=== PATIENT | female | born 1935 | race Caucasian/White ===

== ENCOUNTER 2016-07-31 13:06 | Emergency (ER) | payer MEDICARE, OTHER ==
[2016-07-31] MEDS ORDERED: Sodium Chloride 0.9% 1,000 ML IV ONE (14:08)
[2016-07-31] MEDS ORDERED: Insulin Aspart 100 Units/ML 3 ML Pen SUBCUT ONE ×3 (14:16→16:30)
[2016-07-31] MEDS ORDERED: Potassium Chloride 20 MEQ Packet PO ONE (17:55)
[2016-07-31 18:33] VITALS: BP 131/68
--- NOTE | 2016-08-01 01:43 | ER ---
DATE SEEN: 07/31/2016 The patient's 0530 glucose was 338. It is a nice drop from previous glucoses of 774, 476, down to 338, a drop of 38 mg%, well below the excess considered causing cerebral edema, greater than 190 per hour. Her glucose has come down nicely. She will be seeing the sales special agent tomorrow. See previous dictation. DIAGNOSIS: Nonketotic osmotic hyperglycemia. /[id number] TAMIKA/MODL
--- NOTE | 2016-08-01 07:46 | CT ---
INDICATION: Weakness, hyperglycemia, overall general weakness since birthday on 07/28/2017. CT HEAD WITHOUT CONTRAST: Serial contiguous 2.5 and 5 mm sections were obtained 07/31/2016 and compared with 09/12/2014, again revealing heavy calcifications in the vertebral and internal carotid arteries, extending into the MCA on the left. No shift of midline structures was suggested of any significance. Enlarged ventricles are noted with asymmetrically enlarged left lateral ventricle, possibly on the basis of relative atrophy of the left cerebral cortex. There is also prominence of the cortical sulci. Very slight increased prominence of the size of the ventricles is suggested, compatible with progressive central atrophy. A definite increase is not seen in the cortical sulci. There are some minimal areas of decreased density in the white matter, which do not appear to be significantly progressive. Two lacunar infarcts are again suggested in the posterior right basal ganglia. Again, paranasal sinuses appear to be intact. Cranium was unremarkable. Fluid-filled mastoid air cells are noted anterior rostral inferiorly on the left, which could represent mastoiditis but should be correlated clinically. Findings appear slightly more prominent than on the previous examination. IMPRESSION: 1. No definite acute intracranial abnormality no bleeding site or hematoma. 2. Slightly progressive central atrophy with cortical atrophy also noted. 3. Heavy arterial calcifications noted, compatible with cerebrovascular disease. 4. Possible left-sided mastoiditis. 5. Possible lacunar infarcts posteriorly at the right basal ganglia. 6. Mild degree of microvascular disease is suggested, although other cause of leukoencephalopathy cannot be excluded. Total exam DLP = 949.36 mGy-cm. Report was called to Dr. Herrera at 1437 hours on 07/31/2016. [facility]
--- NOTE | 2016-08-01 08:20 | CR ---
INDICATION: Weakness. CHEST: AP and lateral views of the chest 07/31/2016, compared with 11/20/2010 and 09/30/2014, revealed suggestion of some infiltrate, some of it appearing nodular, at the right lung base. CT examination without and possibly with IV contrast may be helpful in that regard. There does appear to be some increased density anteriorly in the middle lobe on the lateral view. Otherwise, no definite active infiltrate or effusion was seen. Findings suggesting COPD are noted. The aorta was calcified in the arch and descending portion. The heart did not appear enlarged and appeared normal in shape. Bony structures appeared to be grossly intact. IMPRESSION: 1. Infiltrate suggested at the right lower middle to lung base area, some of it nodular. CT may be warranted to exclude possibility of other than benign disease, initially without IV contrast and then with contrast, if needed. 2. Probable COPD. 3. ASD aorta. Report was given by phone to Dr. Herrera soon after the examination was completed on 07/31/2016. [facility]
--- NOTE | 2016-08-01 09:35 | CT ---
INDICATION: 30-40 years ago lung infection, almost ; right middle lobe infiltrate, doubt PE. CT CHEST WITHOUT CONTRAST: Spiral 2.5 mm axial sections were obtained through the chest without contrast with sagittal and coronal reconstructions 07/31/2016. Total exam DLP = 288.87 mGy-cm. Chest x-ray from 07/31/2016 was available for comparison. No comparison CT was available. In the upper abdomen included on the study, multiple large gallstones are noted. Also, in the upper abdomen, extensive abdominal aortic artery calcification, calcification in the splenic artery and superior mesenteric, as well as left renal artery calcifications noted. Some linear density at the left lung base is compatible with some minimal fibrosis. Left lung and pleural space showed no evidence of definite active infiltrate or effusion. Calcified granuloma is noted in the left lower lobe superior segment laterally. In the right upper lobe, there is some minimal infiltration just anterior to the major fissure on axial image #49. It is associated with a small nodular density, which is along its anterior aspect. Likely these all represent fibrotic changes but should be re-examined in 3 months to confirm stability. An additional similar area of patchy infiltrate is seen in the right lower lobe on axial image #59 on the right laterally and should also be re-examined. There is some infiltrate in the middle lobe, suggesting some minimal focal consolidating pneumonia, rather than a mass lesion. No gross mediastinal masses were seen; however, there is some mediastinal lymphadenopathy present, which would be compatible with inflammatory disease but should be correlated clinically in that regard also. Extensive coronary artery calcifications are noted. IMPRESSION: 1. Probable pneumonia, possibly some atelectasis in the middle lobe. 2. Areas of patchy infiltration, minimal in the right upper lobe and right lower lobe. Re-examination by chest CT without contrast recommended in 3 months to confirm stability, as early neoplasia cannot be entirely excluded. 3. Cholelithiasis. 4. ASHD/ASD. Report was called to Dr. Herrera at 1615 hours on 07/31/2016. [facility]
--- NOTE | 2016-08-03 14:03 | ER ---
DATE SEEN: 07/31/2016 TIME SEEN: The patient was seen at 1320 hours. HISTORY OF PRESENT ILLNESS: This 81-year-old comes in with a history of polydipsia, not following her diabetic diet, weakness. She fell a week ago, polyuria, and having taken 30 units of Levemir h.s. last night and experienced hyperglycemia this morning. She took her atenolol and Tylenol No. 3. Last meal today, she had green vegetables and sandwich; however, last night, she had a large piece of chocolate cake. PAST MEDICAL HISTORY: Known coronary artery disease, diabetes, hypertension, rheumatic valve insufficiency, neuralgia, and chronic kidney disease. CURRENT MEDICATIONS: Per list from the clinic is faxed to us today. 1. Recently had been prescribed to have insulin 55 units, but she still has her own Levemir at home. She wants to finish that before she buys it (she wants to be economical). Consequently, she is taking 30 units h.s. and is not taking it during the daytime. She has an appointment to follow up with her diabetic counselor. 2. Tenoretic 100/25. 3. Lipitor 10 mg daily. 4. Imdur 30 mg daily. 5. Tramadol 50 mg daily. 6. Vitamin D with calcium. 7. [place]-3 fatty acids. IMMUNIZATIONS: Up-to-date, including influenza 2016. The patient is alert and appropriate. Noted to have mild dementia. She is attended by her daughter. Daughter has extensive rheumatoid arthritis and is somewhat weak herself. They live together. Daughter sees that Juanis gets her medications. REVIEW OF SYSTEMS: Negative. She denies chest pain, shortness of breath, cough, abdominal pain, diarrhea, constipation, blood in the stool, or black or tarry stool. She has weakness as noted above and muscle weakness and mild arthritis. PHYSICAL EXAMINATION: VITAL SIGNS: Blood pressure 129/63, heart rate 60, respirations 20, oxygen saturation 95% on room air, and 36.8 degrees centigrade temperature. Weight 67.585 kg, height 1.6 m, and she is 26.4 kg/sq m BMI. HEENT: The patient is slightly hard of hearing. PERRLA intact. Pharynx without abnormality. NECK: There is a murmur that is heard in the neck that transfers to the chest. HEART: Systolic murmur on the left upper sternal border. There is a murmur that is transmitted to the left axilla. Does not go to the inferior scapular angle on the left side. LUNGS: No rales in the lungs. ABDOMEN: Nontender. No guarding or abdominal discomfort. EXTREMITIES: Without edema. Deep tendon reflexes hypoactive in upper and lower extremities. WORKING DIAGNOSES: Congestive heart failure, pneumonia, shortness of breath, myocardial infarction causing weakness, hyperglycemia with polydipsia and polyuria. The patient's current glucose is 744. LABORATORY DATA: Remainder of the lab tests: 11,700 D-dimer (not felt this is totally related to or caused by PE), the probability of PE is low. Because of her elevated creatinine of 1.9 and BUN of 32, a PE scan cannot be done by CAT scan; however, it is not felt necessary. X-ray reveals an infiltrate to the right of the lung. This is different from the previous chest x-ray done almost a year ago, which has no infiltrate at all. This suggests perhaps she might have some cancer growth and/or foci of pneumonia. The probably of the latter is low since she has a normal white count of 8600, PMNs 62, lymphs 28, monos 7, platelets 267,000, and hemoglobin 14.0. Complete Metabolic Panel: Abnormal with hyponatremia with sodium of 128, potassium 3.5, chloride 92, CO2 of 22, BUN 32, creatinine 1.6, and 25 of GFR. Stage 4 chronic kidney disease. Glucose 476 (taken after the patient had 10 units of NovoLog). Troponin 0.101. BNP is 115. ASSESSMENT: 1. Nonketotic hyperosmotic hyperglycemia. 2. Hypokalemia on the basis of a low potassium, with her receiving a dose of 40 mEq potassium chloride. She had doses of 10 units of fast-acting insulin that was reviewed by another because this dropped her glucose at least 200 plus units. She was then given a dose of 6 units. She is now eating. Brain natriuretic peptide is 115. Troponin is 0.01. 3. Diabetes without ketoacidosis. 4. Hyponatremia and hypochloremia, possibly secondary to inappropriate ADH and/or most likely dilution from her elevated sugar. Most likely, the hyponatremia is functioning as pseudohyponatremia secondary to hyperglycemia. 5. Troponin is negative, and there is no evidence for myocardial ischemia. EKG was in sinus rhythm, borderline interventricular conduction delay with a widened QRS of 47 milliseconds. 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 PLAN: Because the patient is having difficulty with her diabetes, we have made arrangements for her to see a consumer affairs specialist on 08/01/2016, at 1030 hours. She will follow up with Dr. Davis this , 08/03/2016 at 1130 hours. Also, she has this unusual abnormality in her lungs, which the CT scan read as possible CA or abnormal mass. CAT scan is expected to be repeated in 3 months. /[id number] TAMIKA/GINA
== END 2016-07-31 18:20 | disposition home or self-care (01) ==
LOC: FB.ED 13:06
DX: E11.65 Type 2 diabetes mellitus with hyperglycemia (principal); Z79.4 Long term (current) use of insulin; M25.551 Pain in right hip; J06.9 Acute upper respiratory infection, unspecified; B97.89 Other viral agents as the cause of diseases classified elsewhere; E78.5 Hyperlipidemia, unspecified; M16.11 Unilateral primary osteoarthritis, right hip; I25.10 Atherosclerotic heart disease of native coronary artery without angina pectoris; I10 Essential (primary) hypertension; B35.1 Tinea unguium; N18.9 Chronic kidney disease, unspecified
CPT/HCPCS: 36415; 70450; 71020; 71250; 80048; 80053; 82947; 83880; 84484; 85025; 85379; 93005; 96360; 96372; 99284; 99285; A9270; J7040

== ENCOUNTER 2017-05-14 21:43 | Observation (INO) | payer MEDICARE, OTHER ==
--- NOTE | 2017-05-14 22:06 | EDM.PDOC ---
ED HPI GENERAL MEDICAL PROBLEM - General Stated Complaint: N/V Time Seen by Provider: 05/14/17 21:56 Source of Information: Reports: Patient, EMS History Limitations: Reports: No Limitations - History of Present Illness INITIAL COMMENTS - FREE TEXT/NARRATIVE: 81 y.o.w.f with h/o IDDM came to to the ed after she was passing out several times while on the toilet, as per daughter, who was witnessing the event. Pt had no specific complains on arrival. No N/V/D no C/P. Pt appeared tired however. No acute medical issues at this time. BP 151/58 Pulse 55 Temp 36.8 Pulse ox 95% on RA Accu check on arrival 177 Onset: Today Onset Date: 05/14/17 Onset Time: 20:00 Duration: Hour(s):, Intermittent Location: Reports: Generalized Quality: Reports: Other (passing out for seconds) Improves with: Reports: Rest Worsens with: Reports: Movement Context: Reports: Other (passing out while in the bathroom) Neck Pain Score (Numeric/FACES): 5 - Related Data Allergies Allergy/AdvReac Type Severity Reaction Status Date / Time Penicillins Allergy Unknown unknown Verified 05/14/17 22:03 Home Meds: Home Meds atorvaSTATin [Lipitor] 10 mg PO BEDTIME 05/14/17 [History] metFORMIN HCl [Metformin HCl ER] 1,000 mg PO DAILY 05/15/17 [History] Aspirin [Halfprin] 81 mg PO DAILY #30 tab.ec 05/16/17 [Rx] Hydrochlorothiazide 25 mg PO DAILY #30 tablet 05/16/17 [Rx] Insulin Detemir [Levemir] 45 unit SUBCUT BEDTIME #3 pen 05/16/17 [Rx] Potassium Chloride [Klor-Con M20] 20 meq PO DAILY #30 tab.er 05/16/17 [Rx] Past Medical History Cardiovascular History: Reports: CAD, Heart Failure, Hypertension, Other (See Below) Other Cardiovascular History: mitral valve insuff Genitourinary History: Reports: Renal Disease Musculoskeletal History: Reports: Back Pain, Chronic, Other (See Below) Other Musculoskeletal History: neuralgia, Endocrine/Metabolic History: Reports: Diabetes, Type II Social & Family History - Tobacco Use Smoking Status *Q: Never Smoker Second Hand Smoke Exposure: No - Alcohol Use Days Per Week of Alcohol Use: 0 - Recreational Drug Use Recreational Drug Use: No ED ROS GENERAL - Review of Systems Review Of Systems: See Below Constitutional: Reports: Weakness HEENT: Reports: No Symptoms Respiratory: Reports: No Symptoms Cardiovascular: Reports: No Symptoms Endocrine: Reports: No Symptoms GI/Abdominal: Reports: No Symptoms : Reports: No Symptoms Musculoskeletal: Reports: No Symptoms Skin: Reports: No Symptoms Neurological: Reports: No Symptoms Psychiatric: Reports: No Symptoms Hematologic/Lymphatic: Reports: No Symptoms Immunologic: Reports: No Symptoms - Physical Exam Exam: See Below Exam Limited By: Physical Impairment General Appearance: Alert, WD/WN, Mild Distress, Thin Eye Exam: Bilateral Eye: Normal Inspection Ears: Normal External Exam Nose: Normal Inspection Throat/Mouth: Normal Inspection, No Airway Compromise Head Exam: Atraumatic, Normocephalic Neck: Normal Inspection, Supple, Non-Tender, Full Range of Motion Respiratory/Chest: No Respiratory Distress, Lungs Clear, Normal Breath Sounds Cardiovascular: Normal Peripheral Pulses, Regular Rate, Rhythm, Bradycardia GI/Abdominal: Normal Bowel Sounds, Soft, Non-Tender, No Organomegaly, No Distention, No Abnormal Bruit (Female) Exam: Deferred Rectal (Female) Exam: Deferred Neuro Exam (Abbreviated): Alert, Oriented, CN II-XII Intact, Normal Cognition, No Motor/Sensory Deficits Back Exam: Normal Inspection Extremities: Normal Inspection, Normal Range of Motion, Non-Tender, No Pedal Edema, Normal Capillary Refill Psychiatric: Normal Affect, Normal Mood Skin Exam: Warm, Dry, Intact, Normal Color, No Rash EKG INTERPRETATION EKG Date: 05/14/17 Time: 22:00 Rhythm: NSR Rate (Beats/Min): 54 [place]: Normal P-Wave: Present QRS: Normal ST-T: Normal QT: Normal Comparison: NA - No Prior EKG Course - Vital Signs Text/Narrative:: 81 y.o.w.f with h/o IDDM came to to the ed after she was passing out several times while on the toilet, as per daughter, who was witnessing the event. Pt had no specific complains on arrival. No N/V/D no C/P. Pt appeared tired however. No acute medical issues at this time. BP 151/58 Pulse 55 Temp 36.8 Pulse ox 95% on RA, Accu check was 177 at he scene. PE: Weak, tired 81 y.o.w.f, no tongue bite Labs: UA is pending: CBC nl K 3.4 Cr. 1.6 Impression: Vasovagal syncope, CRI, H/O IDDM, Hypokalemia, DNR/DNI Tx: LR Reexam: improved Plan: Admit to [facility] Last Recorded V/S: Last Vital Signs Temp 36.7 C 05/16/17 12:00 Pulse 65 05/16/17 12:00 Resp 16 05/16/17 12:00 BP 124/57 L 05/16/17 12:00 Pulse Ox 96 05/16/17 12:00 - Orders/Labs/Meds Labs: Laboratory Tests 05/14/17 05/14/17 05/14/17 Range/Units 22:00 22:00 22:00 WBC 11.3 (4.5-12.0) X10-3/uL RBC 5.22 H (3.23-5.20) x10(6)uL Hgb 14.6 (11.5-15.5) g/dL Hct 43.3 (30.0-51.3) % MCV 83.1 (80-96) fL MCH 27.9 (27.7-33.6) pg MCHC 33.6 (32.2-35.4) g/dL RDW 13.3 (11.5-15.5) % Plt Count 332 (125-369) X10(3)uL MPV 7.9 (7.4-10.4) fL Neut % (Auto) 67.5 (46-82) % Lymph % (Auto) 22.2 (13-37) % [place] % (Auto) 8.0 (4-12) % Eos % (Auto) 2 (1.0-5.0) % Baso % (Auto) 1 (0-2) % Neut # (Auto) 7.6 (1.6-8.3) # Lymph # (Auto) 2.5 (0.6-5.0) # [place] # (Auto) 0.9 (0.0-1.3) # Eos # (Auto) 0.2 (0.0-0.8) # Baso # (Auto) 0.1 (0.0-0.2) # PT 10.3 (8.7-11.1) INR 1.02 (0.89-1.13) Sodium 140 (135-145) mmol/L Potassium 3.4 L (3.5-5.3) mmol/L Chloride 98 L (100-110) mmol/L Carbon Dioxide 31 (21-32) mmol/L BUN 32 H (7-18) mg/dL Creatinine 1.6 H (0.55-1.02) mg/dL Est Cr Clr Drug Dosing 22.42 mL/min Estimated GFR (MDRD) 31 L (>60) BUN/Creatinine Ratio 20.0 (9-20) Glucose 179 H (80-116) mg/dL Lactic Acid (0.4-2.2) mmol/L Calcium 9.2 (8.6-10.2) mg/dL Troponin I (<0.017-0.056) ng/mL NT-Pro-B Natriuret Pep (<=450) pg/mL 05/14/17 05/14/17 05/14/17 Range/Units 22:00 22:00 22:00 WBC (4.5-12.0) X10-3/uL RBC (3.23-5.20) x10(6)uL Hgb (11.5-15.5) g/dL Hct (30.0-51.3) % MCV (80-96) fL MCH (27.7-33.6) pg MCHC (32.2-35.4) g/dL RDW (11.5-15.5) % Plt Count (125-369) X10(3)uL MPV (7.4-10.4) fL Neut % (Auto) (46-82) % Lymph % (Auto) (13-37) % [place] % (Auto) (4-12) % Eos % (Auto) (1.0-5.0) % Baso % (Auto) (0-2) % Neut # (Auto) (1.6-8.3) # Lymph # (Auto) (0.6-5.0) # [place] # (Auto) (0.0-1.3) # Eos # (Auto) (0.0-0.8) # Baso # (Auto) (0.0-0.2) # PT (8.7-11.1) INR (0.89-1.13) Sodium (135-145) mmol/L Potassium (3.5-5.3) mmol/L Chloride (100-110) mmol/L Carbon Dioxide (21-32) mmol/L BUN (7-18) mg/dL Creatinine (0.55-1.02) mg/dL Est Cr Clr Drug Dosing mL/min Estimated GFR (MDRD) (>60) BUN/Creatinine Ratio (9-20) Glucose (80-116) mg/dL Lactic Acid 3.0 H (0.4-2.2) mmol/L Calcium (8.6-10.2) mg/dL Troponin I < 0.017 L (<0.017-0.056) ng/mL NT-Pro-B Natriuret Pep 653 H (<=450) pg/mL Meds: Medications Discontinued Medications Generic Name Dose Route Start Last Admin Trade Name Freq PRN Reason Stop Dose Admin Aspirin 81 mg 05/16/17 11:00 05/16/17 11:16 Halfprin PO 81 mg DAILY MUKESH Administration Atorvastatin Calcium 10 mg 05/15/17 21:00 05/15/17 20:32 Lipitor PO 10 mg BEDTIME MUKESH Administration Enoxaparin Sodium 30 mg 05/15/17 15:29 05/15/17 16:10 Lovenox SUBCUT 05/15/17 15:30 30 mg ONETIME ONE Administration Hydrochlorothiazide 25 mg 05/15/17 15:32 05/16/17 08:04 Hydrochlorothiazide PO 25 mg DAILY MUKESH Administration Lactated Ringer's 1,000 mls @ 125 mls/hr 05/14/17 22:45 05/15/17 08:16 Ringers, Lactated IV 125 mls/hr ASDIRECTED MUKESH Administration Lactated Ringer's 1,000 mls @ 80 mls/hr 05/15/17 15:22 05/16/17 05:59 Ringers, Lactated IV 80 mls/hr ASDIRECTED MUKESH Administration Insulin Aspart 0 unit 05/15/17 17:30 05/16/17 11:09 Novolog SUBCUT 1 units QIDACANDBED MUKESH Administration Protocol Insulin Detemir 50 unit 05/15/17 21:00 05/15/17 20:36 Levemir SUBCUT 50 units BEDTIME MUKESH Administration Insulin Detemir 45 unit 05/16/17 21:00 Levemir SUBCUT BEDTIME MUKESH Ondansetron HCl 4 mg 05/15/17 02:29 05/15/17 02:43 Zofran IVPUSH 4 mg Q6H PRN Administration Nausea/Vomiting Potassium Chloride 20 meq 05/16/17 09:15 05/16/17 09:49 Klor-Con M20 PO 20 meq DAILY MUKESH Administration Departure - Departure Time of Disposition: 04:00 Disposition: Refer to Observation Condition: Fair Clinical Impression: Vasovagal episode - Discharge Information
[2017-05-15] MEDS: Lactated Ringers 1,000 ML IV SCH ×3 (00:30→17:08)
[2017-05-15] MEDS ORDERED: Ondansetron 4 MG/2 ML SDV IVPUSH PRN (02:29)
--- NOTE | 2017-05-15 10:30 | PCM.HP ---
H&P History of Present Illness - General Date of Service: 05/15/17 Admit Problem/Dx: Admission Diagnosis/Problem Admission Diagnosis/Problem Syncope - History of Present Illness Initial Comments - Free Text/Narative: Pleasant 81-year-old female who lives at home with her daughter presenting after having an episode of witnessed syncope while sitting on the commode in the evening. Only lasted a few seconds. Patient was also weak. Not complaining of any chest pain or pressure. She was not complaining of any shortness of breath. Brought in for evaluation. She is lying in bed comfortably. She is flat. She shows no signs of respiratory distress, makes good eye contact, speech is clear she is alert and oriented. Comorbidities include essential hypertension and the presence of CHF and coronary artery disease for which she is being treated with atenolol/chlorthalidone, Imdur, atorvastatin. She also has Type II diabetes mellitus insulin-dependent for which she is being treated with metformin and detemir currently 57 units subcutaneous at bedtime. Tells me she's not had any recent medication changes. Admits that she has not been drinking as much because she does not like going to the bathroom all the time. She denies any falls head injuries or recent procedures. She denies having any fevers or chills she's not had any vomiting. States that she did have family over for the holidays and wanted the children did have a cold. Tells me she does not have any jaw shoulder mid back epigastric abdominal pain. Tells me she does not feel short of breath she's not had a cough or fevers or chills. She has not noted any increase swelling in the lower extremities joint swelling or tenderness. She's had no diarrhea nor constipation. She denies any epistaxis or melena or hematochezia. Denies any dysuria, hematuria malodorous urine pelvic or flank pain. She is ambulatory per her own strength does not use a cane or walker. Neck Pain Score (Numeric/FACES): 3 - Related Data Allergies/Adverse Reactions: Allergies Allergy/AdvReac Type Severity Reaction Status Date / Time Penicillins Allergy Unknown unknown Verified 05/14/17 22:03 Home Medications: Home Meds Atenolol/Chlorthalidone [Atenolol-Chlorthalidone 100-25] 0.5 tab PO DAILY [History] Insulin Detemir [Levemir] 57 units SQ BEDTIME 05/14/17 [History] Isosorbide Mononitrate [Imdur] 30 mg PO DAILY 05/14/17 [History] atorvaSTATin [Lipitor] 10 mg PO BEDTIME 05/14/17 [History] metFORMIN HCl [Metformin HCl ER] 1,000 mg PO DAILY 05/15/17 [History] Past Medical History HEENT History: Reports: Hard of Hearing, Impaired Vision Cardiovascular History: Reports: CAD, Heart Failure, Hypertension, Other (See Below) Other Cardiovascular History: mitral valve insuff Genitourinary History: Reports: Renal Disease [employer]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: Musculoskeletal History: Reports: Back Pain, Chronic, Other (See Below) Other Musculoskeletal History: neuralgia, Neurological History: Reports: Other (See Below) Other Neuro History: syncope, says her memory is getting worse Psychiatric History: Reports: Dementia, Other (See Below) Other Psychiatric History: memory is getting bad Endocrine/Metabolic History: Reports: Diabetes, Type II - Infectious Disease History Infectious Disease History: Reports: Measles - Past Surgical History Female Surgical History: Reports: Hysterectomy Musculoskeletal Surgical History: Reports: Other (See Below) Other Musculoskeletal Surgeries/Procedures:: surgery on R arm for fx Social & Family History - Family History Family Medical History: Unobtainable - Tobacco Use Smoking Status *Q: Never Smoker Second Hand Smoke Exposure: No - Caffeine Use Caffeine Use: Reports: Coffee Caffeine Use Comment: 3 cups,day - Alcohol Use Days Per Week of Alcohol Use: 0 - Recreational Drug Use Recreational Drug Use: No - Living Situation & Occupation Living situation: Reports: with Family (With her daughter) H&P Review of Systems - Review of Systems: Review Of Systems: ROS reveals no pertinent complaints other than HPI. Exam - Exam Exam: See Below - Vital Signs Vital Signs: Vital Signs - 24 hr 05/14/17 05/14/17 05/14/17 21:45 21:56 22:30 Temperature [ 98.2 F 97.8 F Oral] Pulse, Peripheral [ Left Pulse Oximetry] Pulse, 55 L 53 L 56 L Peripheral [ Right Pulse Oximetry] Respiratory 15 17 18 Rate Blood Pressure [Left Upper Arm ] Blood Pressure 141/58 H 128/104 H 127/53 L [Right Upper Arm] O2 Sat by Pulse 95 94 L 97 Oximetry O2 Sat by Pulse Oximetry [Room Air] 05/14/17 05/15/17 05/15/17 22:43 03:00 06:00 Temperature [ 97.9 F 99.1 F Oral] Pulse, 57 L Peripheral [ Left Pulse Oximetry] Pulse, 56 L Peripheral [ Right Pulse Oximetry] Respiratory 16 16 Rate Blood Pressure 130/63 [Left Upper Arm ] Blood Pressure 125/56 L [Right Upper Arm] O2 Sat by Pulse 95 94 L Oximetry O2 Sat by Pulse 95 96 Oximetry [Room Air] 05/15/17 05/15/17 05/15/17 06:40 08:00 14:30 Temperature [ 98.8 F 98.5 F 98.5 F Oral] Pulse, 57 L 63 Peripheral [ Left Pulse Oximetry] Pulse, 61 Peripheral [ Right Pulse Oximetry] Respiratory 17 16 16 Rate Blood Pressure 139/62 135/63 132/68 [Left Upper Arm ] Blood Pressure [Right Upper Arm] O2 Sat by Pulse 96 95 95 Oximetry O2 Sat by Pulse Oximetry [Room Air] Orthostatic Blood Pressure [ 133/57 Standing] Orthostatic Blood Pressure [ 134/64 Sitting] Orthostatic Blood Pressure [ 132/68 Supine] Weight: 61.598 kg - Exam General: Alert, Oriented, Cooperative. No: Mild Distress HEENT: PERRLA, Conjunctiva Clear, Hearing Intact (Does have diminished hearing bilaterally), Mucosa Moist & [place], Nares Patent. No: Rhinitis Neck: Supple, Trachea Midline. No: JVD Lungs: Clear to Auscultation, Normal Respiratory Effort. No: Rales, Wheezing Cardiovascular: Regular Rate, Regular Rhythm, Systolic Murmur (3/6) GI/Abdominal Exam: Normal Bowel Sounds, Soft, Non-Tender (Female) Exam: Deferred Rectal (Female) Exam: Deferred Back Exam: Normal Inspection. No: CVA Tenderness (R), CVA Tenderness (L) Extremities: Normal Inspection, Non-Tender, No Pedal Edema, Normal Capillary Refill Skin: Warm, Dry, Intact Neurological: Cranial Nerves Intact, Strength Equal Bilateral Neuro Extensive - Mental Status: Other (Increasing memory difficulties over the last year. No sudden changes.) Psychiatric: Normal Affect, Normal Mood - Patient Data Lab Results Last 24 hrs: Laboratory Results - last 24 hr 05/15/17 Range/Units 02:35 Urine Color Yellow (YELLOW) Urine Appearance Clear (CLEAR) Urine pH 7.0 H (5.0-6.5) Ur Specific [place] 1.005 L (1.010-1.025) Urine Protein Negative (NEGATIVE) mg/dL Urine Glucose (UA) Normal (NEGATIVE) mg/dL Urine Ketones Negative (NEGATIVE) mg/dL Urine Occult Blood Negative (NEGATIVE) Urine Nitrite Negative (NEGATIVE) Urine Bilirubin Negative (NEGATIVE) Urine Urobilinogen Normal (NEGATIVE) mg/dL Ur Leukocyte Esterase Negative (NEGATIVE) Urine RBC 0-5 (0) Urine WBC 0-5 (0) Ur Squamous Epith Cells Few H (NS,R,O) Urine Bacteria Moderate H (NS) Result Diagrams: 05/15/17 10:30 05/15/17 10:30 EKG INTERPRETATION EKG Date: 05/15/17 Rhythm: NSR Rate (Beats/Min): 62 P-Wave: Present QRS: Normal ST-T: Normal QT: Normal Comparison: No Change (compared to 07/31/2016) *Q Meaningful Use (ADM) - VTE *Q VTE Criteria *Q: VTE Mechanical Contraindications *Q: At Risk for Falls - Stroke *Q Stroke Criteria *Q: - AMI *Q AMI Criteria *Q: - Problem List (1) Syncope SNOMED Code(s): 007656883 ICD Code: R55 - SYNCOPE AND COLLAPSE Status: Acute Current Visit: Yes Onset Date: ~05/14/17 (2) Mild dehydration SNOMED Code(s): 0769301617728 ICD Code: E86.0 - DEHYDRATION Status: Acute Current Visit: Yes (3) Hyponatremia SNOMED Code(s): 00496551 ICD Code: E87.1 - HYPO-OSMOLALITY AND HYPONATREMIA Status: Acute Current Visit: Yes (4) CAD (coronary artery disease) SNOMED Code(s): 87552213 ICD Code: I25.10 - ATHSCL HEART DISEASE OF [place] CORONARY ARTERY W/O ANG PCTRS Status: Chronic Current Visit: Yes (5) Diabetes mellitus SNOMED Code(s): 84957101 ICD Code: E11.9 - TYPE 2 DIABETES MELLITUS WITHOUT COMPLICATIONS Status: Chronic Current Visit: Yes Qualifiers: Diabetes mellitus type: type 2 Diabetes mellitus 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 insulin use: with alf use Problem List Initiated/Reviewed/Updated: Yes Orders Last 24hrs: Active Orders 24 hr Category Date Time Status Patient Status [ADT] Routine ADT 05/14/17 22:43 Active Bedrest Bedside Commode [RC] ASDIRECTED Care 05/14/17 22:39 Active EKG Documentation Completion [RC] ASDIRECTED Care 05/14/17 21:50 Active EKG Documentation Completion [RC] ROUTINE Care 05/15/17 10:15 Active Intake and Output Strict [RC] Q2H Care 05/15/17 10:31 Ordered Oxygen Therapy [RC] PRN Care 05/14/17 22:43 Active VTE/DVT Education [RC] Per Unit Routine Care 05/14/17 22:43 Active Vital Signs [RC] Q4H Care 05/14/17 22:43 Active CBC WITH AUTO DIFF [HEME] Routine Lab 05/15/17 10:15 Ordered COMPREHENSIVE METABOLIC PN,CMP [CHEM] Routine Lab 05/15/17 10:15 Ordered GLYCOSYLATED HEMOGLOBIN,HGBA1C [CHEM] Routine Lab 05/15/17 10:15 Ordered TROPONIN I [CHEM] Q4H Lab 05/15/17 10:15 Ordered TROPONIN I [CHEM] Q4H Lab 05/15/17 14:15 Ordered TSH ULTRASENSITIVE [CHEM] Routine Lab 05/15/17 10:15 Ordered Lactated Ringers [Ringers, Lactated] 1,000 ml Med 05/14/17 22:45 Active IV ASDIRECTED Ondansetron [Zofran] Med 05/15/17 02:29 Active 4 mg IVPUSH Q6H PRN Resuscitation Status Routine Resus Stat 05/14/17 22:39 Ordered EKG 12 Lead [EK] Routine Ther 05/14/17 21:49 Ordered EKG 12 Lead [EK] Routine Ther 05/15/17 10:15 Ordered Medication Orders Lactated Ringer's (Ringers, Lactated) 1,000 mls @ 125 mls/hr IV ASDIRECTED MUKESH Last Admin: 05/15/17 08:16 Dose: 125 mls/hr Infusion: 05/15/17 08:16 Dose: 125 mls/hr Admin: 05/15/17 00:30 Dose: 125 mls/hr Ondansetron HCl (Zofran) 4 mg IVPUSH Q6H PRN PRN Reason: Nausea/Vomiting Last Admin: 05/15/17 02:43 Dose: 4 mg Assessment/Plan Comment:: I'll keep her overnight on telemetry to evaluate for any blocks that she might have. I am going to discontinue her beta madai due to bradycardia. She is on a long-acting thiazide so i will switch this to a shorter acting dose and monitor her blood pressure accordingly. Ill hold her Imdur as well. I will get her up and moving around. She has been getting LR at 125 mL/hr overnight, so I am going to turned this down to 80 mL an hour. She is tolerating diet and drinking fluids. She knows that she's got good urine output and so has slowed her oral intake for fear of having to frequently use the restroom. I believe this is a combination of mild dehydration, and bradycardia and will treat accordingly. EKG doesn't show any acute signs of cardiac event, enzymes are negative and she displays no neurologic evidence of cerebrovascular ischemia. Will have physical therapy evaluate and treat her. anticipate discharge home tomorrow with her daughter pending above.
[2017-05-15] MEDS ORDERED: Enoxaparin 30 MG/0.3 ML Syringe SUBCUT ONE (15:29)
[2017-05-15] MEDS: Hydrochlorothiazide 25 MG Tab PO SCH (16:12)
[2017-05-15] MEDS: Insulin Aspart 100 Units/ML 3 ML Pen SUBCUT SCH ×2 (17:31→20:39)
[2017-05-15] MEDS ORDERED: INSULIN DETEMIR 100 UNIT/ML SUBCUT SCH (21:00)
[2017-05-15] MEDS ORDERED: ATORVASTATIN 10 MG PO SCH (21:00)
[2017-05-16] MEDS: Lactated Ringers 1,000 ML IV SCH (05:59)
[2017-05-16] MEDS: Insulin Aspart 100 Units/ML 3 ML Pen SUBCUT SCH ×2 (07:54→11:09)
[2017-05-16] MEDS: Hydrochlorothiazide 25 MG Tab PO SCH (08:04)
[2017-05-16] MEDS ORDERED: Potassium Chloride 20 MEQ Tab.ER PO SCH (09:15)
--- NOTE | 2017-05-16 09:21 | PCM.PN ---
- General Info Date of Service: 05/16/17 Subjective Update: Patient is awake lying in bed. She is smiling alert and oriented 3. She tells me she feels much stronger and she has been up and moving around in the hallway with PT stating she has not need of cares. She is tolerating her diet. She's not had any headache vision change focal neurologic deficit difficulty with speech or swallowing she's not had any coughing wheezing or shortness of breath. She denies any anterior chest pain or pressure no mid back shoulder epigastric pain. She denies any palpitations or lightheadedness or dizziness on standing. She has tolerated her medication changes and her blood pressures have maintained in the 130s systolic. She continues to make good urine output roughly a liter overnight. Telemetry has not shown any blocks or QT prolongation. She still remains bradycardic intermittently off atenolol. She tells me she would like to go home as she does still back to her baseline. She's remained afebrile and no events during her stay. Labs this morning does show mild decrease in potassium levels however she is on a thiazide so will add a small dose of oral potassium went home. She has been having some low blood sugars roughly in the low 60s which could also be a contributing factor tells me she has been eating breakfast at home because it will make her sugars go up. Concerned that low blood sugars may be contributing factor as well. Tells me she hasn't seen a physician in quite some time so we'll make sure she has close follow-up within the next week to go over her medication changes, recent laboratory work intolerance with activity. - Review of Systems Systems Review Comment:: Pertinent positives and negatives relevant to today's visit please see history of present illness - Patient Data Vitals - Most Recent: Last Vital Signs Temp 98.0 F 05/16/17 08:00 Pulse 67 05/16/17 08:00 Resp 16 05/16/17 08:00 BP 135/67 05/16/17 08:00 Pulse Ox 98 05/16/17 08:00 Orthostatic Blood Pressure [ 128/62 Standing] Orthostatic Blood Pressure [ 138/52 Sitting] Orthostatic Blood Pressure [ 132/56 Supine] Weight - Most Recent: 62.171 kg I&O - Last 24 Hours: Intake & Output 05/15/17 05/16/17 22:59 06:59 Intake Total 1876 1242 Output Total 1450 1140 Balance 426 102 Lab Results Last 24 Hours: Laboratory Results - last 24 hr 05/15/17 05/15/17 05/15/17 Range/Units 10:30 10:30 10:30 WBC 8.0 (4.5-12.0) X10-3/uL RBC 4.76 (3.23-5.20) x10(6)uL Hgb 13.4 (11.5-15.5) g/dL Hct 39.9 (30.0-51.3) % MCV 83.8 (80-96) fL MCH 28.1 (27.7-33.6) pg MCHC 33.5 (32.2-35.4) g/dL RDW 13.4 (11.5-15.5) % Plt Count 252 (125-369) X10(3)uL MPV 7.9 (7.4-10.4) fL Neut % (Auto) 74.6 (46-82) % Lymph % (Auto) 16.5 (13-37) % [place] % (Auto) 7.9 (4-12) % Eos % (Auto) 1 (1.0-5.0) % Baso % (Auto) 0 (0-2) % Neut # (Auto) 6.0 (1.6-8.3) # Lymph # (Auto) 1.3 (0.6-5.0) # [place] # (Auto) 0.6 (0.0-1.3) # Eos # (Auto) 0.1 (0.0-0.8) # Baso # (Auto) 0.0 (0.0-0.2) # Sodium 139 (135-145) mmol/L Potassium 3.3 L (3.5-5.3) mmol/L Chloride 100 (100-110) mmol/L Carbon Dioxide 29 (21-32) mmol/L BUN 29 H (7-18) mg/dL Creatinine 1.4 H (0.55-1.02) mg/dL Est Cr Clr Drug Dosing 25.63 mL/min Estimated GFR (MDRD) 36 L (>60) BUN/Creatinine Ratio 20.7 H (9-20) Glucose 218 H (80-116) mg/dL POC Glucose (80-116) mg/dL Hemoglobin A1c (4.5-6.2) % Calcium 8.2 L (8.6-10.2) mg/dL Total Bilirubin 0.5 (0.1-1.3) mg/dL AST 19 (5-25) IU/L ALT 22 (12-36) U/L Alkaline Phosphatase 65 (56-112) IU/L Troponin I < 0.017 L (<0.017-0.056) ng/mL Total Protein 6.3 (6.0-8.0) g/dL Albumin 2.8 L (3.2-4.6) g/dL Globulin 3.5 g/dL Albumin/Globulin Ratio 0.8 TSH, Ultra Sensitive 0.85 (0.36-3.74) IU/mL 05/15/17 05/15/17 05/15/17 Range/Units 10:30 15:00 16:15 WBC (4.5-12.0) X10-3/uL RBC (3.23-5.20) x10(6)uL Hgb (11.5-15.5) g/dL Hct (30.0-51.3) % MCV (80-96) fL MCH (27.7-33.6) pg MCHC (32.2-35.4) g/dL RDW (11.5-15.5) % Plt Count (125-369) X10(3)uL MPV (7.4-10.4) fL Neut % (Auto) (46-82) % Lymph % (Auto) (13-37) % [place] % (Auto) (4-12) % Eos % (Auto) (1.0-5.0) % Baso % (Auto) (0-2) % Neut # (Auto) (1.6-8.3) # Lymph # (Auto) (0.6-5.0) # [place] # (Auto) (0.0-1.3) # Eos # (Auto) (0.0-0.8) # Baso # (Auto) (0.0-0.2) # Sodium (135-145) mmol/L Potassium (3.5-5.3) mmol/L Chloride (100-110) mmol/L Carbon Dioxide (21-32) mmol/L BUN (7-18) mg/dL Creatinine (0.55-1.02) mg/dL Est Cr Clr Drug Dosing mL/min Estimated GFR (MDRD) (>60) BUN/Creatinine Ratio (9-20) Glucose (80-116) mg/dL POC Glucose 244 H (80-116) mg/dL Hemoglobin A1c 8.1 H (4.5-6.2) % Calcium (8.6-10.2) mg/dL Total Bilirubin (0.1-1.3) mg/dL AST (5-25) IU/L ALT (12-36) U/L Alkaline Phosphatase (56-112) IU/L Troponin I < 0.017 L (<0.017-0.056) ng/mL Total Protein (6.0-8.0) g/dL Albumin (3.2-4.6) g/dL Globulin g/dL Albumin/Globulin Ratio TSH, Ultra Sensitive (0.36-3.74) IU/mL 05/15/17 05/16/17 05/16/17 Range/Units 20:36 06:01 06:02 WBC (4.5-12.0) X10-3/uL RBC (3.23-5.20) x10(6)uL Hgb (11.5-15.5) g/dL Hct (30.0-51.3) % MCV (80-96) fL MCH (27.7-33.6) pg MCHC (32.2-35.4) g/dL RDW (11.5-15.5) % Plt Count (125-369) X10(3)uL MPV (7.4-10.4) fL Neut % (Auto) (46-82) % Lymph % (Auto) (13-37) % [place] % (Auto) (4-12) % Eos % (Auto) (1.0-5.0) % Baso % (Auto) (0-2) % Neut # (Auto) (1.6-8.3) # Lymph # (Auto) (0.6-5.0) # [place] # (Auto) (0.0-1.3) # Eos # (Auto) (0.0-0.8) # Baso # (Auto) (0.0-0.2) # Sodium 141 (135-145) mmol/L Potassium 3.2 L (3.5-5.3) mmol/L Chloride 101 (100-110) mmol/L Carbon Dioxide 31 (21-32) mmol/L BUN 23 H (7-18) mg/dL Creatinine 1.4 H (0.55-1.02) mg/dL Est Cr Clr Drug Dosing 25.63 mL/min Estimated GFR (MDRD) 36 L (>60) BUN/Creatinine Ratio 16.4 (9-20) Glucose 76 L D (80-116) mg/dL POC Glucose 277 H 67 L D (80-116) mg/dL Hemoglobin A1c (4.5-6.2) % Calcium 8.5 L (8.6-10.2) mg/dL Total Bilirubin (0.1-1.3) mg/dL AST (5-25) IU/L ALT (12-36) U/L Alkaline Phosphatase (56-112) IU/L Troponin I (<0.017-0.056) ng/mL Total Protein (6.0-8.0) g/dL Albumin (3.2-4.6) g/dL Globulin g/dL Albumin/Globulin Ratio TSH, Ultra Sensitive (0.36-3.74) IU/mL Laboratory Tests 05/14/17 05/14/17 05/14/17 Range/Units 22:00 22:00 22:00 WBC 11.3 (4.5-12.0) X10-3/uL RBC 5.22 H (3.23-5.20) x10(6)uL Hgb 14.6 (11.5-15.5) g/dL Hct 43.3 (30.0-51.3) % MCV 83.1 (80-96) fL MCH 27.9 (27.7-33.6) pg MCHC 33.6 (32.2-35.4) g/dL RDW 13.3 (11.5-15.5) % Plt Count 332 (125-369) X10(3)uL MPV 7.9 (7.4-10.4) fL Neut % (Auto) 67.5 (46-82) % Lymph % (Auto) 22.2 (13-37) % [place] % (Auto) 8.0 (4-12) % Eos % (Auto) 2 (1.0-5.0) % Baso % (Auto) 1 (0-2) % Neut # (Auto) 7.6 (1.6-8.3) # Lymph # (Auto) 2.5 (0.6-5.0) # [place] # (Auto) 0.9 (0.0-1.3) # Eos # (Auto) 0.2 (0.0-0.8) # Baso # (Auto) 0.1 (0.0-0.2) # PT 10.3 (8.7-11.1) INR 1.02 (0.89-1.13) Sodium 140 (135-145) mmol/L Potassium 3.4 L (3.5-5.3) mmol/L Chloride 98 L (100-110) mmol/L Carbon Dioxide 31 (21-32) mmol/L BUN 32 H (7-18) mg/dL Creatinine 1.6 H (0.55-1.02) mg/dL Est Cr Clr Drug Dosing 22.42 mL/min Estimated GFR (MDRD) 31 L (>60) BUN/Creatinine Ratio 20.0 (9-20) Glucose 179 H (80-116) mg/dL POC Glucose (80-116) mg/dL Hemoglobin A1c (4.5-6.2) % Lactic Acid (0.4-2.2) mmol/L Calcium 9.2 (8.6-10.2) mg/dL Total Bilirubin (0.1-1.3) mg/dL AST (5-25) IU/L ALT (12-36) U/L Alkaline Phosphatase (56-112) IU/L Troponin I (<0.017-0.056) ng/mL NT-Pro-B Natriuret Pep (<=450) pg/mL Total Protein (6.0-8.0) g/dL Albumin (3.2-4.6) g/dL Globulin g/dL Albumin/Globulin Ratio TSH, Ultra Sensitive (0.36-3.74) IU/mL Urine Color (YELLOW) Urine Appearance (CLEAR) Urine pH (5.0-6.5) Ur Specific [place] (1.010-1.025) Urine Protein (NEGATIVE) mg/dL Urine Glucose (UA) (NEGATIVE) mg/dL Urine Ketones (NEGATIVE) mg/dL Urine Occult Blood (NEGATIVE) Urine Nitrite (NEGATIVE) Urine Bilirubin (NEGATIVE) Urine Urobilinogen (NEGATIVE) mg/dL Ur Leukocyte Esterase (NEGATIVE) Urine RBC (0) Urine WBC (0) Ur Squamous Epith Cells (NS,R,O) Urine Bacteria (NS) 05/14/17 05/14/17 05/14/17 Range/Units 22:00 22:00 22:00 WBC (4.5-12.0) X10-3/uL RBC (3.23-5.20) x10(6)uL Hgb (11.5-15.5) g/dL Hct (30.0-51.3) % MCV (80-96) fL MCH (27.7-33.6) pg MCHC (32.2-35.4) g/dL RDW (11.5-15.5) % Plt Count (125-369) X10(3)uL MPV (7.4-10.4) fL Neut % (Auto) (46-82) % Lymph % (Auto) (13-37) % [place] % (Auto) (4-12) % Eos % (Auto) (1.0-5.0) % Baso % (Auto) (0-2) % Neut # (Auto) (1.6-8.3) # Lymph # (Auto) (0.6-5.0) # [place] # (Auto) (0.0-1.3) # Eos # (Auto) (0.0-0.8) # Baso # (Auto) (0.0-0.2) # PT (8.7-11.1) INR (0.89-1.13) Sodium (135-145) mmol/L Potassium (3.5-5.3) mmol/L Chloride (100-110) mmol/L Carbon Dioxide (21-32) mmol/L BUN (7-18) mg/dL Creatinine (0.55-1.02) mg/dL Est Cr Clr Drug Dosing mL/min Estimated GFR (MDRD) (>60) BUN/Creatinine Ratio (9-20) Glucose (80-116) mg/dL POC Glucose (80-116) mg/dL Hemoglobin A1c (4.5-6.2) % Lactic Acid 3.0 H (0.4-2.2) mmol/L Calcium (8.6-10.2) mg/dL Total Bilirubin (0.1-1.3) mg/dL AST (5-25) IU/L ALT (12-36) U/L Alkaline Phosphatase (56-112) IU/L Troponin I < 0.017 L (<0.017-0.056) ng/mL NT-Pro-B Natriuret Pep 653 H (<=450) pg/mL Total Protein (6.0-8.0) g/dL Albumin (3.2-4.6) g/dL Globulin g/dL Albumin/Globulin Ratio TSH, Ultra Sensitive (0.36-3.74) IU/mL Urine Color (YELLOW) Urine Appearance (CLEAR) Urine pH (5.0-6.5) Ur Specific [place] (1.010-1.025) Urine Protein (NEGATIVE) mg/dL Urine Glucose (UA) (NEGATIVE) mg/dL Urine Ketones (NEGATIVE) mg/dL Urine Occult Blood (NEGATIVE) Urine Nitrite (NEGATIVE) Urine Bilirubin (NEGATIVE) Urine Urobilinogen (NEGATIVE) mg/dL Ur Leukocyte Esterase (NEGATIVE) Urine RBC (0) Urine WBC (0) Ur Squamous Epith Cells (NS,R,O) Urine Bacteria (NS) 05/15/17 05/15/17 05/15/17 Range/Units 02:35 10:30 10:30 WBC 8.0 (4.5-12.0) X10-3/uL RBC 4.76 (3.23-5.20) x10(6)uL Hgb 13.4 (11.5-15.5) g/dL Hct 39.9 (30.0-51.3) % MCV 83.8 (80-96) fL MCH 28.1 (27.7-33.6) pg MCHC 33.5 (32.2-35.4) g/dL RDW 13.4 (11.5-15.5) % Plt Count 252 (125-369) X10(3)uL MPV 7.9 (7.4-10.4) fL Neut % (Auto) 74.6 (46-82) % Lymph % (Auto) 16.5 (13-37) % [place] % (Auto) 7.9 (4-12) % Eos % (Auto) 1 (1.0-5.0) % Baso % (Auto) 0 (0-2) % Neut # (Auto) 6.0 (1.6-8.3) # Lymph # (Auto) 1.3 (0.6-5.0) # [place] # (Auto) 0.6 (0.0-1.3) # Eos # (Auto) 0.1 (0.0-0.8) # Baso # (Auto) 0.0 (0.0-0.2) # PT (8.7-11.1) INR (0.89-1.13) Sodium 139 (135-145) mmol/L Potassium 3.3 L (3.5-5.3) mmol/L Chloride 100 (100-110) mmol/L Carbon Dioxide 29 (21-32) mmol/L BUN 29 H (7-18) mg/dL Creatinine 1.4 H (0.55-1.02) mg/dL Est Cr Clr Drug Dosing 25.63 mL/min Estimated GFR (MDRD) 36 L (>60) BUN/Creatinine Ratio 20.7 H (9-20) Glucose 218 H (80-116) mg/dL POC Glucose (80-116) mg/dL Hemoglobin A1c (4.5-6.2) % Lactic Acid (0.4-2.2) mmol/L Calcium 8.2 L (8.6-10.2) mg/dL Total Bilirubin 0.5 (0.1-1.3) mg/dL AST 19 (5-25) IU/L ALT 22 (12-36) U/L Alkaline Phosphatase 65 (56-112) IU/L Troponin I (<0.017-0.056) ng/mL NT-Pro-B Natriuret Pep (<=450) pg/mL Total Protein 6.3 (6.0-8.0) g/dL Albumin 2.8 L (3.2-4.6) g/dL Globulin 3.5 g/dL Albumin/Globulin Ratio 0.8 TSH, Ultra Sensitive (0.36-3.74) IU/mL Urine Color Yellow (YELLOW) Urine Appearance Clear (CLEAR) Urine pH 7.0 H (5.0-6.5) Ur Specific [place] 1.005 L (1.010-1.025) Urine Protein Negative (NEGATIVE) mg/dL Urine Glucose (UA) Normal (NEGATIVE) mg/dL Urine Ketones Negative (NEGATIVE) mg/dL Urine Occult Blood Negative (NEGATIVE) Urine Nitrite Negative (NEGATIVE) Urine Bilirubin Negative (NEGATIVE) Urine Urobilinogen Normal (NEGATIVE) mg/dL Ur Leukocyte Esterase Negative (NEGATIVE) Urine RBC 0-5 (0) Urine WBC 0-5 (0) Ur Squamous Epith Cells Few H (NS,R,O) Urine Bacteria Moderate H (NS) 05/15/17 05/15/17 05/15/17 Range/Units 10:30 10:30 15:00 WBC (4.5-12.0) X10-3/uL RBC (3.23-5.20) x10(6)uL Hgb (11.5-15.5) g/dL Hct (30.0-51.3) % MCV (80-96) fL MCH (27.7-33.6) pg MCHC (32.2-35.4) g/dL RDW (11.5-15.5) % Plt Count (125-369) X10(3)uL MPV (7.4-10.4) fL Neut % (Auto) (46-82) % Lymph % (Auto) (13-37) % [place] % (Auto) (4-12) % Eos % (Auto) (1.0-5.0) % Baso % (Auto) (0-2) % Neut # (Auto) (1.6-8.3) # Lymph # (Auto) (0.6-5.0) # [place] # (Auto) (0.0-1.3) # Eos # (Auto) (0.0-0.8) # Baso # (Auto) (0.0-0.2) # PT (8.7-11.1) INR (0.89-1.13) Sodium (135-145) mmol/L Potassium (3.5-5.3) mmol/L Chloride (100-110) mmol/L Carbon Dioxide (21-32) mmol/L BUN (7-18) mg/dL Creatinine (0.55-1.02) mg/dL Est Cr Clr Drug Dosing mL/min Estimated GFR (MDRD) (>60) BUN/Creatinine Ratio (9-20) Glucose (80-116) mg/dL POC Glucose (80-116) mg/dL Hemoglobin A1c 8.1 H (4.5-6.2) % Lactic Acid (0.4-2.2) mmol/L Calcium (8.6-10.2) mg/dL Total Bilirubin (0.1-1.3) mg/dL AST (5-25) IU/L ALT (12-36) U/L Alkaline Phosphatase (56-112) IU/L Troponin I < 0.017 L < 0.017 L (<0.017-0.056) ng/mL NT-Pro-B Natriuret Pep (<=450) pg/mL Total Protein (6.0-8.0) g/dL Albumin (3.2-4.6) g/dL Globulin g/dL Albumin/Globulin Ratio TSH, Ultra Sensitive 0.85 (0.36-3.74) IU/mL Urine Color (YELLOW) Urine Appearance (CLEAR) Urine pH (5.0-6.5) Ur Specific [place] (1.010-1.025) Urine Protein (NEGATIVE) mg/dL Urine Glucose (UA) (NEGATIVE) mg/dL Urine Ketones (NEGATIVE) mg/dL Urine Occult Blood (NEGATIVE) Urine Nitrite (NEGATIVE) Urine Bilirubin (NEGATIVE) Urine Urobilinogen (NEGATIVE) mg/dL Ur Leukocyte Esterase (NEGATIVE) Urine RBC (0) Urine WBC (0) Ur Squamous Epith Cells (NS,R,O) Urine Bacteria (NS) 05/15/17 05/15/17 05/16/17 Range/Units 16:15 20:36 06:01 WBC (4.5-12.0) X10-3/uL RBC (3.23-5.20) x10(6)uL Hgb (11.5-15.5) g/dL Hct (30.0-51.3) % MCV (80-96) fL MCH (27.7-33.6) pg MCHC (32.2-35.4) g/dL RDW (11.5-15.5) % Plt Count (125-369) X10(3)uL MPV (7.4-10.4) fL Neut % (Auto) (46-82) % Lymph % (Auto) (13-37) % [place] % (Auto) (4-12) % Eos % (Auto) (1.0-5.0) % Baso % (Auto) (0-2) % Neut # (Auto) (1.6-8.3) # Lymph # (Auto) (0.6-5.0) # [place] # (Auto) (0.0-1.3) # Eos # (Auto) (0.0-0.8) # Baso # (Auto) (0.0-0.2) # PT (8.7-11.1) INR (0.89-1.13) Sodium (135-145) mmol/L Potassium (3.5-5.3) mmol/L Chloride (100-110) mmol/L Carbon Dioxide (21-32) mmol/L BUN (7-18) mg/dL Creatinine (0.55-1.02) mg/dL Est Cr Clr Drug Dosing mL/min Estimated GFR (MDRD) (>60) BUN/Creatinine Ratio (9-20) Glucose (80-116) mg/dL POC Glucose 244 H 277 H 67 L D (80-116) mg/dL Hemoglobin A1c (4.5-6.2) % Lactic Acid (0.4-2.2) mmol/L Calcium (8.6-10.2) mg/dL Total Bilirubin (0.1-1.3) mg/dL AST (5-25) IU/L ALT (12-36) U/L Alkaline Phosphatase (56-112) IU/L Troponin I (<0.017-0.056) ng/mL NT-Pro-B Natriuret Pep (<=450) pg/mL Total Protein (6.0-8.0) g/dL Albumin (3.2-4.6) g/dL Globulin g/dL Albumin/Globulin Ratio TSH, Ultra Sensitive (0.36-3.74) IU/mL Urine Color (YELLOW) Urine Appearance (CLEAR) Urine pH (5.0-6.5) Ur Specific [place] (1.010-1.025) Urine Protein (NEGATIVE) mg/dL Urine Glucose (UA) (NEGATIVE) mg/dL Urine Ketones (NEGATIVE) mg/dL Urine Occult Blood (NEGATIVE) Urine Nitrite (NEGATIVE) Urine Bilirubin (NEGATIVE) Urine Urobilinogen (NEGATIVE) mg/dL Ur Leukocyte Esterase (NEGATIVE) Urine RBC (0) Urine WBC (0) Ur Squamous Epith Cells (NS,R,O) Urine Bacteria (NS) 05/16/17 05/16/17 Range/Units 06:02 06:39 WBC (4.5-12.0) X10-3/uL RBC (3.23-5.20) x10(6)uL Hgb (11.5-15.5) g/dL Hct (30.0-51.3) % MCV (80-96) fL MCH (27.7-33.6) pg MCHC (32.2-35.4) g/dL RDW (11.5-15.5) % Plt Count (125-369) X10(3)uL MPV (7.4-10.4) fL Neut % (Auto) (46-82) % Lymph % (Auto) (13-37) % [place] % (Auto) (4-12) % Eos % (Auto) (1.0-5.0) % Baso % (Auto) (0-2) % Neut # (Auto) (1.6-8.3) # Lymph # (Auto) (0.6-5.0) # [place] # (Auto) (0.0-1.3) # Eos # (Auto) (0.0-0.8) # Baso # (Auto) (0.0-0.2) # PT (8.7-11.1) INR (0.89-1.13) Sodium 141 (135-145) mmol/L Potassium 3.2 L (3.5-5.3) mmol/L Chloride 101 (100-110) mmol/L Carbon Dioxide 31 (21-32) mmol/L BUN 23 H (7-18) mg/dL Creatinine 1.4 H (0.55-1.02) mg/dL Est Cr Clr Drug Dosing 25.63 mL/min Estimated GFR (MDRD) 36 L (>60) BUN/Creatinine Ratio 16.4 (9-20) Glucose 76 L D (80-116) mg/dL POC Glucose 79 L (80-116) mg/dL Hemoglobin A1c (4.5-6.2) % Lactic Acid (0.4-2.2) mmol/L Calcium 8.5 L (8.6-10.2) mg/dL Total Bilirubin (0.1-1.3) mg/dL AST (5-25) IU/L ALT (12-36) U/L Alkaline Phosphatase (56-112) IU/L Troponin I (<0.017-0.056) ng/mL NT-Pro-B Natriuret Pep (<=450) pg/mL Total Protein (6.0-8.0) g/dL Albumin (3.2-4.6) g/dL Globulin g/dL Albumin/Globulin Ratio TSH, Ultra Sensitive (0.36-3.74) IU/mL Urine Color (YELLOW) Urine Appearance (CLEAR) Urine pH (5.0-6.5) Ur Specific [place]off (1.010-1.025) Urine Protein (NEGATIVE) mg/dL Urine Glucose (UA) (NEGATIVE) mg/dL Urine Ketones (NEGATIVE) mg/dL Urine Occult Blood (NEGATIVE) Urine Nitrite (NEGATIVE) Urine Bilirubin (NEGATIVE) Urine Urobilinogen (NEGATIVE) mg/dL Ur Leukocyte Esterase (NEGATIVE) Urine RBC (0) Urine WBC (0) Ur Squamous Epith Cells (NS,R,O) Urine Bacteria (NS) Med Orders - Current: Current Medications Atorvastatin Calcium (Lipitor) 10 mg PO BEDTIME [facility] Last Admin: 05/15/17 20:32 Dose: 10 mg Hydrochlorothiazide (Hydrochlorothiazide) 25 mg PO DAILY [facility] Last Admin: 05/16/17 08:04 Dose: 25 mg Lactated Ringer's (Ringers, Lactated) 1,000 mls @ 80 mls/hr IV ASDIRECTED [facility] Last Admin: 05/16/17 05:59 Dose: 80 mls/hr Insulin Aspart (Novolog) 0 unit SUBCUT QIDACANDBED [facility] PRN Reason: Protocol Last Admin: 05/16/17 07:54 Dose: Not Given Insulin Detemir (Levemir) 45 unit SUBCUT DAILY [facility] Ondansetron HCl (Zofran) 4 mg IVPUSH Q6H PRN PRN Reason: Nausea/Vomiting Last Admin: 05/15/17 02:43 Dose: 4 mg Potassium Chloride (Klor-Con M20) 20 meq PO DAILY [facility] Discontinued Medications Enoxaparin Sodium (Lovenox) 30 mg SUBCUT ONETIME ONE Stop: 05/15/17 15:30 Last Admin: 05/15/17 16:10 Dose: 30 mg Lactated Ringer's (Ringers, Lactated) 1,000 mls @ 125 mls/hr IV ASDIRECTED [facility] Last Admin: 05/15/17 08:16 Dose: 125 mls/hr Insulin Detemir (Levemir) 50 unit SUBCUT BEDTIME [facility] Last Admin: 05/15/17 20:36 Dose: 50 units - Exam Physical Findings Comments:: General: Alert, Oriented, Cooperative. No: Mild Distress HEENT: PERR, Conjunctiva Clear, Hearing Intact (Does have diminished hearing bilaterally), Mucosa Moist & [place], Nares Patent. No: Rhinitis Neck: Supple, Trachea Midline. No: JVD Lungs: Clear to Auscultation, Normal Respiratory Effort. No: Rales, Wheezing Cardiovascular: Regular Rate, Regular Rhythm, Systolic Murmur (3/6) GI/Abdominal Exam: Normal Bowel Sounds, Soft, Non-Tender (Female) Exam: Deferred Rectal (Female) Exam: Deferred Back Exam: Normal Inspection. No: CVA Tenderness (R), CVA Tenderness (L) Extremities: Normal Inspection, Non-Tender, No Pedal Edema, Normal Capillary Refill Skin: Warm, Dry, Intact Neurological: Cranial Nerves Intact, Strength Equal Bilateral, no peripheral focal deficit Neuro Extensive - Mental Status: Other (Increasing memory difficulties over the last year. No sudden changes.) Psychiatric: Normal Affect, Normal Mood - Problem List & Annotations (1) Syncope SNOMED Code(s): 550067201 Code(s): R55 - SYNCOPE AND COLLAPSE Status: Resolved Current Visit: Yes Onset Date: ~05/14/17 (2) Mild dehydration SNOMED Code(s): 3982725751937 Code(s): E86.0 - DEHYDRATION Status: Resolved Current Visit: Yes (3) Hypokalemia, excessive renal losses SNOMED Code(s): 55300871 Code(s): E87.6 - HYPOKALEMIA Status: Acute Current Visit: Yes (4) Hyponatremia SNOMED Code(s): 62478764 Code(s): E87.1 - HYPO-OSMOLALITY AND HYPONATREMIA Status: Resolved Current Visit: Yes (5) Diabetes mellitus SNOMED Code(s): 02300456 Code(s): E11.9 - TYPE 2 DIABETES MELLITUS WITHOUT COMPLICATIONS Status: Chronic Current Visit: Yes Qualifiers: Diabetes mellitus type: type 2 Diabetes mellitus intermediate teacher insulin use: with intermediate teacher use (6) CAD (coronary artery disease) SNOMED Code(s): 40109187 Code(s): I25.10 - ATHSCL HEART DISEASE OF [place] CORONARY ARTERY W/O ANG PCTRS Status: Chronic Current Visit: Yes (7) Palliative care status SNOMED Code(s): 016301165 Code(s): Z51.5 - ENCOUNTER FOR PALLIATIVE CARE Status: Acute Current Visit: Yes - Problem List Review Problem List Initiated/Reviewed/Updated: Yes - My Orders Last 24 Hours: My Active Orders 05/15/17 10:15 EKG 12 Lead [EK] Routine 05/15/17 10:31 Intake and Output Strict [RC] Q2H 05/15/17 14:00 Orthostatic Vital Signs [RC] ASDIRECTED 05/15/17 15:20 OT Evaluation and Treatment [CONS] Routine PT Evaluation and Treatment [CONS] Routine 05/15/17 15:21 Telemetry Monitoring [Cardiac Monitoring] [RC] 00,08,16 05/15/17 15:22 Lactated Ringers [Ringers, Lactated] 1,000 ml IV ASDIRECTED 05/15/17 15:29 Blood Glucose Check, Bedside [RC] QIDACANDBED 05/15/17 15:32 Hydrochlorothiazide 25 mg PO DAILY 05/15/17 17:30 Insulin Aspart [NovoLOG] See Protocol SUBCUT QIDACANDBED 05/15/17 21:00 atorvaSTATin [Lipitor] 10 mg PO BEDTIME 05/16/17 09:13 Activity as Tolerated [RC] .Routine Up With Assistance [RC] ASDIRECTED 05/16/17 09:15 Potassium Chloride [Klor-Con M20] 20 meq PO DAILY 05/16/17 11:00 Aspirin [Halfprin] 81 mg PO DAILY 05/16/17 21:00 Insulin Detemir [Levemir] 45 unit SUBCUT BEDTIME - Assessment Assessment:: Please see above - Plan Plan:: remains bradycardic in the 50-60s asymptomatic, however only been off the atenolol since yesterday. The orthostatics were normal and she was asymptomatic. She was switched from long-acting thiazide (chlorthalidone) to a shorter acting thiazide dose (hydrochlorothiazide) and her blood pressure have been acceptible. potassium remains a bit low, so will at an oral dose. Im still holding her Imdur as well. This may need to be restarted outpatient. She is tolerating diet and drinking fluids. Insulin dosing of levemir was given last night at her home dose of 50 units subcutaneous at bedtime and her glucose has been running on the low side around 60s. I will send her home on a decreased dose of 45 units subcutaneous as she may be having periods of hypoglycemia. A1c was acceptable 8.1. Overall, this is also a combination of mild dehydration secondary to poor oral intake, and anti-diuretics. bradycardia secondary to physiologic cardiac status as well as oral nonselective beta madai (atenolol). EKGs doesn't show any acute signs of cardiac event, enzymes are negative and she displays no neurologic evidence of cerebrovascular ischemia. Due to medication changes will have her see her PCP in the next 7 days to review medication changes adjust dosing if needed also going to start her on baby aspirin 81 mg daily and assess whether or not she should be on a baby aspirin, as she tells me she was never told to be on one of these. does live with her daughter as well as has a local daughter who is also RN.
[2017-05-16] MEDS ORDERED: Aspirin 81 MG Tab.EC PO SCH (11:00)
--- NOTE | 2017-05-16 11:03 | PCM.DCSUM1 ---
Discharge Summary - Hospital Course HPI Initial Comments: Pleasant 81-year-old female who lives at home with her daughter brought in for syncopal episode witnessed lasting several seconds while sitting on the commode. Increased weakness without focal deficits. On presentation to the ER she was noted to have mild dehydration and bradycardia. EKG negative for acute event as well as negative enzymes. No focal findings suggestive of TIA or stroke. Just generalized weakness. She was given IV fluids, stopped her atenolol , switch her chlorthalidone over to hydrochlorothiazide and she did have some hypokalemia I did add an oral dose of potassium to her regimen. Repeat EKGs showed no changes compared to priors. Strength improved with good urine output. She otherwise had no complications. I also held her Imdur and her blood pressures have been acceptable in the 130s systolic. 80s diastolic. Orthostatics were normal and she was asymptomatic. She's been ambulating in the solo without difficulty. And at time of discharge she was having no headache vision change tinnitus cough wheezing shortness of breath on exertion anterior posterior chest pressure or pain denied any palpitations no focal numbness or tingling difficulty chewing or swallowing abdominal pain diarrhea dysuria or malodorous urine. Excellent urine output with chronic renal insufficiency improved with hydration. She did have hypoglycemic episodes roughly in the 57- 60 mg/dL range. So I did decrease her home Levemir from 50 units subcutaneous to 45 units subcutaneous. She has not received any dose as of yet. She will start this when she goes home and follow-up with her PCP regarding dosing along with repeat BMP. Did start her on a baby aspirin 81 mg daily for cardiovascular protection, restarted her metformin but continue to hold her Imdur. She's had no complaints of chest pain. All questions were answered and written down for her and her daughter to review and may call or ask any questions if needed. Follow-up with PCP in the next week. Allergies/Adverse Reactions: Allergies Allergy/AdvReac Type Severity Reaction Status Date / Time Penicillins Allergy Unknown unknown Verified 05/14/17 22:03 Prior to admission Home Medications: Atenolol/Chlorthalidone [Atenolol-Chlorthalidone 100-25] 0.5 tab PO DAILY [History] Insulin Detemir [Levemir] 50 units SQ BEDTIME 05/14/17 [History] Isosorbide Mononitrate [Imdur] 30 mg PO DAILY 05/14/17 [History] atorvaSTATin [Lipitor] 10 mg PO BEDTIME 05/14/17 [History] metFORMIN HCl [Metformin HCl ER] 1,000 mg PO DAILY 05/15/17 [History] - Discharge Data Discharge Date: 05/16/17 Discharge Disposition: Home, Self-Care 01 Condition: Fair - Discharge Diagnosis/Problem(s) (1) Syncope SNOMED Code(s): 925109425 ICD Code: R55 - SYNCOPE AND COLLAPSE Status: Resolved Current Visit: Yes Onset Date: ~05/14/17 (2) Mild dehydration SNOMED Code(s): 9437229279178 ICD Code: E86.0 - DEHYDRATION Status: Resolved Current Visit: Yes (3) Hypokalemia, excessive renal losses SNOMED Code(s): 90889783 ICD Code: E87.6 - HYPOKALEMIA Status: Acute Current Visit: Yes (4) Hyponatremia SNOMED Code(s): 87932591 ICD Code: E87.1 - HYPO-OSMOLALITY AND HYPONATREMIA Status: Resolved Current Visit: Yes (5) Diabetes mellitus SNOMED Code(s): 18131354 ICD Code: E11.9 - TYPE 2 DIABETES MELLITUS WITHOUT COMPLICATIONS Status: Chronic Current Visit: Yes Qualifiers: Diabetes mellitus type: type 2 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 OT Reason for Consult: Discharge Planning This query below is only for informational purposes and is not editable. Admission Diagnosis/Problem: Syncope PT Evaluation and Treatment [CONS] Routine Please Evaluate and Treat. PT Reason for Consult: Strengthening Special Instructions: Strengthening and ambulation. This query below is only for informational purposes and is not editable. Admission Diagnosis/Problem: Syncope Recommended Follow-up Testing/Procedures: BMP in the next week. Hospital Course: Please see discharge plan - Patient Instructions Notify Provider of: Fever, Nausea and/or Vomiting Other/Special Instructions: Headache not relieved with Tylenol, epistaxis, cough shortness of breath chest pain, pressure palpitations near syncope or hypoglycemia less than 60 mg/dL for hyperglycemia greater than 300 mg/dL. Call if BP greater than 160 systolic or less than 100 systolic. Present ER pulse less than 40 bpm or less than 60 and symptomatic. - Discharge Plan Prescriptions/Med Rec: Aspirin [Halfprin] 81 mg PO DAILY #30 tab.ec Hydrochlorothiazide 25 mg PO DAILY #30 tablet Insulin Detemir [Levemir] 45 unit SUBCUT BEDTIME #3 pen Potassium Chloride [Klor-Con M20] 20 meq PO DAILY #30 tab.er Home Medications: Home Meds atorvaSTATin [Lipitor] 10 mg PO BEDTIME 05/14/17 [History] metFORMIN HCl [Metformin HCl ER] 1,000 mg PO DAILY 05/15/17 [History] Aspirin [Halfprin] 81 mg PO DAILY #30 tab.ec 05/16/17 [Rx] Hydrochlorothiazide 25 mg PO DAILY #30 tablet 05/16/17 [Rx] Insulin Detemir [Levemir] 45 unit SUBCUT BEDTIME #3 pen 05/16/17 [Rx] Potassium Chloride [Klor-Con M20] 20 meq PO DAILY #30 tab.er 05/16/17 [Rx] Referrals: PCP,Unknown [Primary Care Provider] - (needs to be seen in next 3-5 days.) - Discharge Summary/Plan Comment DC Time >30 min.: Yes Discharge Summary/Plan Comment: Please see above history of present illness/hospital course/discharge plan. - General Info Subjective Update: Patient is awake lying in bed. She is smiling alert and oriented 3. She tells me she feels much stronger and she has been up and moving around in the hallway with PT stating she has not need of cares. She is tolerating her diet. She's not had any headache vision change focal neurologic deficit difficulty with speech or swallowing she's not had any coughing wheezing or shortness of breath. She denies any anterior chest pain or pressure no mid back shoulder epigastric pain. She denies any palpitations or lightheadedness or dizziness on standing. She has tolerated her medication changes and her blood pressures have maintained in the 130s systolic. She continues to make good urine output roughly a liter overnight. Telemetry has not shown any blocks or QT prolongation. She still remains bradycardic intermittently off atenolol. She tells me she would like to go home as she does still back to her baseline. She's remained afebrile and no events during her stay. Labs this morning does show mild decrease in potassium levels however she is on a thiazide so will add a small dose of oral potassium went home. She has been having some low blood sugars roughly in the low 60s which could also be a contributing factor tells me she has been eating breakfast at home because it will make her sugars go up. Concerned that low blood sugars may be contributing factor as well. Tells me she hasn't seen a physician in quite some time so we'll make sure she has close follow-up within the next week to go over her medication changes, recent laboratory work intolerance with activity. - Review of Systems Systems Review Comment: For pertinent positives and negatives please see history of present illness - Patient Data Vitals - Most Recent: Vital Signs - 24 hr 05/15/17 05/15/17 05/15/17 14:30 18:37 20:45 Temperature [ 98.5 F 98.0 F 98.2 F Oral] Pulse, Peripheral [ Left Pulse Oximetry] Pulse, 59 L Peripheral [ Right Brachial] Pulse, 61 61 Peripheral [ Right Pulse Oximetry] Respiratory 16 16 18 Rate Blood Pressure 132/68 144/69 H [Left Upper Arm ] Blood Pressure 124/42 L [Right Upper Arm] O2 Sat by Pulse 95 96 93 L Oximetry 05/16/17 05/16/17 05/16/17 00:00 03:00 08:00 Temperature [ 98 F 98 F 98.0 F Oral] Pulse, 67 Peripheral [ Left Pulse Oximetry] Pulse, 58 L 56 L Peripheral [ Right Brachial] Pulse, Peripheral [ Right Pulse Oximetry] Respiratory 18 18 16 Rate Blood Pressure 128/58 L 132/56 L [Left Upper Arm ] Blood Pressure 135/67 [Right Upper Arm] O2 Sat by Pulse 94 L 93 L 98 Oximetry Orthostatic Blood Pressure [ 128/62 Standing] Orthostatic Blood Pressure [ 133/57 Standing] Orthostatic Blood Pressure [ 138/52 Sitting] Orthostatic Blood Pressure [ 134/64 Sitting] Orthostatic Blood Pressure [ 132/56 Supine] Orthostatic Blood Pressure [ 132/68 Supine] Weight - Most Recent: 62.171 kg I&O - Last 24 hours: Intake & Output 05/15/17 05/16/17 05/16/17 22:59 06:59 14:59 Intake Total 1876 1242 100 Output Total 1450 1140 200 Balance 426 102 -100 Lab Results - Last 24 hrs: Laboratory Tests 05/14/17 05/14/17 05/14/17 Range/Units 22:00 22:00 22:00 WBC 11.3 (4.5-12.0) X10-3/uL RBC 5.22 H (3.23-5.20) x10(6)uL Hgb 14.6 (11.5-15.5) g/dL Hct 43.3 (30.0-51.3) % MCV 83.1 (80-96) fL MCH 27.9 (27.7-33.6) pg MCHC 33.6 (32.2-35.4) g/dL RDW 13.3 (11.5-15.5) % Plt Count 332 (125-369) X10(3)uL MPV 7.9 (7.4-10.4) fL Neut % (Auto) 67.5 (46-82) % Lymph % (Auto) 22.2 (13-37) % [place] % (Auto) 8.0 (4-12) % Eos % (Auto) 2 (1.0-5.0) % Baso % (Auto) 1 (0-2) % Neut # (Auto) 7.6 (1.6-8.3) # Lymph # (Auto) 2.5 (0.6-5.0) # [place] # (Auto) 0.9 (0.0-1.3) # Eos # (Auto) 0.2 (0.0-0.8) # Baso # (Auto) 0.1 (0.0-0.2) # PT 10.3 (8.7-11.1) INR 1.02 (0.89-1.13) Sodium 140 (135-145) mmol/L Potassium 3.4 L (3.5-5.3) mmol/L Chloride 98 L (100-110) mmol/L Carbon Dioxide 31 (21-32) mmol/L BUN 32 H (7-18) mg/dL Creatinine 1.6 H (0.55-1.02) mg/dL Est Cr Clr Drug Dosing 22.42 mL/min Estimated GFR (MDRD) 31 L (>60) BUN/Creatinine Ratio 20.0 (9-20) Glucose 179 H (80-116) mg/dL POC Glucose (80-116) mg/dL Hemoglobin A1c (4.5-6.2) % Lactic Acid (0.4-2.2) mmol/L Calcium 9.2 (8.6-10.2) mg/dL Total Bilirubin (0.1-1.3) mg/dL AST (5-25) IU/L ALT (12-36) U/L Alkaline Phosphatase (56-112) IU/L Troponin I (<0.017-0.056) ng/mL NT-Pro-B Natriuret Pep (<=450) pg/mL Total Protein (6.0-8.0) g/dL Albumin (3.2-4.6) g/dL Globulin g/dL Albumin/Globulin Ratio TSH, Ultra Sensitive (0.36-3.74) IU/mL Urine Color (YELLOW) Urine Appearance (CLEAR) Urine pH (5.0-6.5) Ur Specific [place] (1.010-1.025) Urine Protein (NEGATIVE) mg/dL Urine Glucose (UA) (NEGATIVE) mg/dL Urine Ketones (NEGATIVE) mg/dL Urine Occult Blood (NEGATIVE) Urine Nitrite (NEGATIVE) Urine Bilirubin (NEGATIVE) Urine Urobilinogen (NEGATIVE) mg/dL Ur Leukocyte Esterase (NEGATIVE) Urine RBC (0) Urine WBC (0) Ur Squamous Epith Cells (NS,R,O) Urine Bacteria (NS) 05/14/17 05/14/17 05/14/17 Range/Units 22:00 22:00 22:00 WBC (4.5-12.0) X10-3/uL RBC (3.23-5.20) x10(6)uL Hgb (11.5-15.5) g/dL Hct (30.0-51.3) % MCV (80-96) fL MCH (27.7-33.6) pg MCHC (32.2-35.4) g/dL RDW (11.5-15.5) % Plt Count (125-369) X10(3)uL MPV (7.4-10.4) fL Neut % (Auto) (46-82) % Lymph % (Auto) (13-37) % [place] % (Auto) (4-12) % Eos % (Auto) (1.0-5.0) % Baso % (Auto) (0-2) % Neut # (Auto) (1.6-8.3) # Lymph # (Auto) (0.6-5.0) # [place] # (Auto) (0.0-1.3) # Eos # (Auto) (0.0-0.8) # Baso # (Auto) (0.0-0.2) # PT (8.7-11.1) INR (0.89-1.13) Sodium (135-145) mmol/L Potassium (3.5-5.3) mmol/L Chloride (100-110) mmol/L Carbon Dioxide (21-32) mmol/L BUN (7-18) mg/dL Creatinine (0.55-1.02) mg/dL Est Cr Clr Drug Dosing mL/min Estimated GFR (MDRD) (>60) BUN/Creatinine Ratio (9-20) Glucose (80-116) mg/dL POC Glucose (80-116) mg/dL Hemoglobin A1c (4.5-6.2) % Lactic Acid 3.0 H (0.4-2.2) mmol/L Calcium (8.6-10.2) mg/dL Total Bilirubin (0.1-1.3) mg/dL AST (5-25) IU/L ALT (12-36) U/L Alkaline Phosphatase (56-112) IU/L Troponin I < 0.017 L (<0.017-0.056) ng/mL NT-Pro-B Natriuret Pep 653 H (<=450) pg/mL Total Protein (6.0-8.0) g/dL Albumin (3.2-4.6) g/dL Globulin g/dL Albumin/Globulin Ratio TSH, Ultra Sensitive (0.36-3.74) IU/mL Urine Color (YELLOW) Urine Appearance (CLEAR) Urine pH (5.0-6.5) Ur Specific [place] (1.010-1.025) Urine Protein (NEGATIVE) mg/dL Urine Glucose (UA) (NEGATIVE) mg/dL Urine Ketones (NEGATIVE) mg/dL Urine Occult Blood (NEGATIVE) Urine Nitrite (NEGATIVE) Urine Bilirubin (NEGATIVE) Urine Urobilinogen (NEGATIVE) mg/dL Ur Leukocyte Esterase (NEGATIVE) Urine RBC (0) Urine WBC (0) Ur Squamous Epith Cells (NS,R,O) Urine Bacteria (NS) 05/15/17 05/15/17 05/15/17 Range/Units 02:35 10:30 10:30 WBC 8.0 (4.5-12.0) X10-3/uL RBC 4.76 (3.23-5.20) x10(6)uL Hgb 13.4 (11.5-15.5) g/dL Hct 39.9 (30.0-51.3) % MCV 83.8 (80-96) fL MCH 28.1 (27.7-33.6) pg MCHC 33.5 (32.2-35.4) g/dL RDW 13.4 (11.5-15.5) % Plt Count 252 (125-369) X10(3)uL MPV 7.9 (7.4-10.4) fL Neut % (Auto) 74.6 (46-82) % Lymph % (Auto) 16.5 (13-37) % [place] % (Auto) 7.9 (4-12) % Eos % (Auto) 1 (1.0-5.0) % Baso % (Auto) 0 (0-2) % Neut # (Auto) 6.0 (1.6-8.3) # Lymph # (Auto) 1.3 (0.6-5.0) # [place] # (Auto) 0.6 (0.0-1.3) # Eos # (Auto) 0.1 (0.0-0.8) # Baso # (Auto) 0.0 (0.0-0.2) # PT (8.7-11.1) INR (0.89-1.13) Sodium 139 (135-145) mmol/L Potassium 3.3 L (3.5-5.3) mmol/L Chloride 100 (100-110) mmol/L Carbon Dioxide 29 (21-32) mmol/L BUN 29 H (7-18) mg/dL Creatinine 1.4 H (0.55-1.02) mg/dL Est Cr Clr Drug Dosing 25.63 mL/min Estimated GFR (MDRD) 36 L (>60) BUN/Creatinine Ratio 20.7 H (9-20) Glucose 218 H (80-116) mg/dL POC Glucose (80-116) mg/dL Hemoglobin A1c (4.5-6.2) % Lactic Acid (0.4-2.2) mmol/L Calcium 8.2 L (8.6-10.2) mg/dL Total Bilirubin 0.5 (0.1-1.3) mg/dL AST 19 (5-25) IU/L ALT 22 (12-36) U/L Alkaline Phosphatase 65 (56-112) IU/L Troponin I (<0.017-0.056) ng/mL NT-Pro-B Natriuret Pep (<=450) pg/mL Total Protein 6.3 (6.0-8.0) g/dL Albumin 2.8 L (3.2-4.6) g/dL Globulin 3.5 g/dL Albumin/Globulin Ratio 0.8 TSH, Ultra Sensitive (0.36-3.74) IU/mL Urine Color Yellow (YELLOW) Urine Appearance Clear (CLEAR) Urine pH 7.0 H (5.0-6.5) Ur Specific [place] 1.005 L (1.010-1.025) Urine Protein Negative (NEGATIVE) mg/dL Urine Glucose (UA) Normal (NEGATIVE) mg/dL Urine Ketones Negative (NEGATIVE) mg/dL Urine Occult Blood Negative (NEGATIVE) Urine Nitrite Negative (NEGATIVE) Urine Bilirubin Negative (NEGATIVE) Urine Urobilinogen Normal (NEGATIVE) mg/dL Ur Leukocyte Esterase Negative (NEGATIVE) Urine RBC 0-5 (0) Urine WBC 0-5 (0) Ur Squamous Epith Cells Few H (NS,R,O) Urine Bacteria Moderate H (NS) 05/15/17 05/15/17 05/15/17 Range/Units 10:30 10:30 15:00 WBC (4.5-12.0) X10-3/uL RBC (3.23-5.20) x10(6)uL Hgb (11.5-15.5) g/dL Hct (30.0-51.3) % MCV (80-96) fL MCH (27.7-33.6) pg MCHC (32.2-35.4) g/dL RDW (11.5-15.5) % Plt Count (125-369) X10(3)uL MPV (7.4-10.4) fL Neut % (Auto) (46-82) % Lymph % (Auto) (13-37) % [place] % (Auto) (4-12) % Eos % (Auto) (1.0-5.0) % Baso % (Auto) (0-2) % Neut # (Auto) (1.6-8.3) # Lymph # (Auto) (0.6-5.0) # [place] # (Auto) (0.0-1.3) # Eos # (Auto) (0.0-0.8) # Baso # (Auto) (0.0-0.2) # PT (8.7-11.1) INR (0.89-1.13) Sodium (135-145) mmol/L Potassium (3.5-5.3) mmol/L Chloride (100-110) mmol/L Carbon Dioxide (21-32) mmol/L BUN (7-18) mg/dL Creatinine (0.55-1.02) mg/dL Est Cr Clr Drug Dosing mL/min Estimated GFR (MDRD) (>60) BUN/Creatinine Ratio (9-20) Glucose (80-116) mg/dL POC Glucose (80-116) mg/dL Hemoglobin A1c 8.1 H (4.5-6.2) % Lactic Acid (0.4-2.2) mmol/L Calcium (8.6-10.2) mg/dL Total Bilirubin (0.1-1.3) mg/dL AST (5-25) IU/L ALT (12-36) U/L Alkaline Phosphatase (56-112) IU/L Troponin I < 0.017 L < 0.017 L (<0.017-0.056) ng/mL NT-Pro-B Natriuret Pep (<=450) pg/mL Total Protein (6.0-8.0) g/dL Albumin (3.2-4.6) g/dL Globulin g/dL Albumin/Globulin Ratio TSH, Ultra Sensitive 0.85 (0.36-3.74) IU/mL Urine Color (YELLOW) Urine Appearance (CLEAR) Urine pH (5.0-6.5) Ur Specific [place] (1.010-1.025) Urine Protein (NEGATIVE) mg/dL Urine Glucose (UA) (NEGATIVE) mg/dL Urine Ketones (NEGATIVE) mg/dL Urine Occult Blood (NEGATIVE) Urine Nitrite (NEGATIVE) Urine Bilirubin (NEGATIVE) Urine Urobilinogen (NEGATIVE) mg/dL Ur Leukocyte Esterase (NEGATIVE) Urine RBC (0) Urine WBC (0) Ur Squamous Epith Cells (NS,R,O) Urine Bacteria (NS) 05/15/17 05/15/17 05/16/17 Range/Units 16:15 20:36 06:01 WBC (4.5-12.0) X10-3/uL RBC (3.23-5.20) x10(6)uL Hgb (11.5-15.5) g/dL Hct (30.0-51.3) % MCV (80-96) fL MCH (27.7-33.6) pg MCHC (32.2-35.4) g/dL RDW (11.5-15.5) % Plt Count (125-369) X10(3)uL MPV (7.4-10.4) fL Neut % (Auto) (46-82) % Lymph % (Auto) (13-37) % [place] % (Auto) (4-12) % Eos % (Auto) (1.0-5.0) % Baso % (Auto) (0-2) % Neut # (Auto) (1.6-8.3) # Lymph # (Auto) (0.6-5.0) # [place] # (Auto) (0.0-1.3) # Eos # (Auto) (0.0-0.8) # Baso # (Auto) (0.0-0.2) # PT (8.7-11.1) INR (0.89-1.13) Sodium (135-145) mmol/L Potassium (3.5-5.3) mmol/L Chloride (100-110) mmol/L Carbon Dioxide (21-32) mmol/L BUN (7-18) mg/dL Creatinine (0.55-1.02) mg/dL Est Cr Clr Drug Dosing mL/min Estimated GFR (MDRD) (>60) BUN/Creatinine Ratio (9-20) Glucose (80-116) mg/dL POC Glucose 244 H 277 H 67 L D (80-116) mg/dL Hemoglobin A1c (4.5-6.2) % Lactic Acid (0.4-2.2) mmol/L Calcium (8.6-10.2) mg/dL Total Bilirubin (0.1-1.3) mg/dL AST (5-25) IU/L ALT (12-36) U/L Alkaline Phosphatase (56-112) IU/L Troponin I (<0.017-0.056) ng/mL NT-Pro-B Natriuret Pep (<=450) pg/mL Total Protein (6.0-8.0) g/dL Albumin (3.2-4.6) g/dL Globulin g/dL Albumin/Globulin Ratio TSH, Ultra Sensitive (0.36-3.74) IU/mL Urine Color (YELLOW) Urine Appearance (CLEAR) Urine pH (5.0-6.5) Ur Specific [place] (1.010-1.025) Urine Protein (NEGATIVE) mg/dL Urine Glucose (UA) (NEGATIVE) mg/dL Urine Ketones (NEGATIVE) mg/dL Urine Occult Blood (NEGATIVE) Urine Nitrite (NEGATIVE) Urine Bilirubin (NEGATIVE) Urine Urobilinogen (NEGATIVE) mg/dL Ur Leukocyte Esterase (NEGATIVE) Urine RBC (0) Urine WBC (0) Ur Squamous Epith Cells (NS,R,O) Urine Bacteria (NS) 05/16/17 05/16/17 05/16/17 Range/Units 06:02 06:39 11:06 WBC (4.5-12.0) X10-3/uL RBC (3.23-5.20) x10(6)uL Hgb (11.5-15.5) g/dL Hct (30.0-51.3) % MCV (80-96) fL MCH (27.7-33.6) pg MCHC (32.2-35.4) g/dL RDW (11.5-15.5) % Plt Count (125-369) X10(3)uL MPV (7.4-10.4) fL Neut % (Auto) (46-82) % Lymph % (Auto) (13-37) % [place] % (Auto) (4-12) % Eos % (Auto) (1.0-5.0) % Baso % (Auto) (0-2) % Neut # (Auto) (1.6-8.3) # Lymph # (Auto) (0.6-5.0) # [place] # (Auto) (0.0-1.3) # Eos # (Auto) (0.0-0.8) # Baso # (Auto) (0.0-0.2) # PT (8.7-11.1) INR (0.89-1.13) Sodium 141 (135-145) mmol/L Potassium 3.2 L (3.5-5.3) mmol/L Chloride 101 (100-110) mmol/L Carbon Dioxide 31 (21-32) mmol/L BUN 23 H (7-18) mg/dL Creatinine 1.4 H (0.55-1.02) mg/dL Est Cr Clr Drug Dosing 25.63 mL/min Estimated GFR (MDRD) 36 L (>60) BUN/Creatinine Ratio 16.4 (9-20) Glucose 76 L D (80-116) mg/dL POC Glucose 79 L 158 H (80-116) mg/dL Hemoglobin A1c (4.5-6.2) % Lactic Acid (0.4-2.2) mmol/L Calcium 8.5 L (8.6-10.2) mg/dL Total Bilirubin (0.1-1.3) mg/dL AST (5-25) IU/L ALT (12-36) U/L Alkaline Phosphatase (56-112) IU/L Troponin I (<0.017-0.056) ng/mL NT-Pro-B Natriuret Pep (<=450) pg/mL Total Protein (6.0-8.0) g/dL Albumin (3.2-4.6) g/dL Globulin g/dL Albumin/Globulin Ratio TSH, Ultra Sensitive (0.36-3.74) IU/mL Urine Color (YELLOW) Urine Appearance (CLEAR) Urine pH (5.0-6.5) Ur Specific [place] (1.010-1.025) Urine Protein (NEGATIVE) mg/dL Urine Glucose (UA) (NEGATIVE) mg/dL Urine Ketones (NEGATIVE) mg/dL Urine Occult Blood (NEGATIVE) Urine Nitrite (NEGATIVE) Urine Bilirubin (NEGATIVE) Urine Urobilinogen (NEGATIVE) mg/dL Ur Leukocyte Esterase (NEGATIVE) Urine RBC (0) Urine WBC (0) Ur Squamous Epith Cells (NS,R,O) Urine Bacteria (NS) Med Orders - Current: Current Medications Aspirin (Halfprin) 81 mg PO DAILY [facility] Atorvastatin Calcium (Lipitor) 10 mg PO BEDTIME [facility] Last Admin: 05/15/17 20:32 Dose: 10 mg Hydrochlorothiazide (Hydrochlorothiazide) 25 mg PO DAILY [facility] Last Admin: 05/16/17 08:04 Dose: 25 mg Lactated Ringer's (Ringers, Lactated) 1,000 mls @ 80 mls/hr IV ASDIRECTED [facility] Last Admin: 05/16/17 05:59 Dose: 80 mls/hr Insulin Aspart (Novolog) 0 unit SUBCUT QIDACANDBED [facility] PRN Reason: Protocol Last Admin: 05/16/17 07:54 Dose: Not Given Insulin Detemir (Levemir) 45 unit SUBCUT BEDTIME [facility] Ondansetron HCl (Zofran) 4 mg IVPUSH Q6H PRN PRN Reason: Nausea/Vomiting Last Admin: 05/15/17 02:43 Dose: 4 mg Potassium Chloride (Klor-Con M20) 20 meq PO DAILY [facility] Last Admin: 05/16/17 09:49 Dose: 20 meq Discontinued Medications Enoxaparin Sodium (Lovenox) 30 mg SUBCUT ONETIME ONE Stop: 05/15/17 15:30 Last Admin: 05/15/17 16:10 Dose: 30 mg Lactated Ringer's (Ringers, Lactated) 1,000 mls @ 125 mls/hr IV ASDIRECTED [facility] Last Admin: 05/15/17 08:16 Dose: 125 mls/hr Insulin Detemir (Levemir) 50 unit SUBCUT BEDTIME [facility] Last Admin: 05/15/17 20:36 Dose: 50 units - Exam Physical Findings Comments:: General: Alert, Oriented, Cooperative. No: Mild Distress HEENT: PERR, Conjunctiva Clear, Hearing Intact (Does have diminished hearing bilaterally), Mucosa Moist & [place], Nares Patent. No: Rhinitis Neck: Supple, Trachea Midline. No: JVD Lungs: Clear to Auscultation, Normal Respiratory Effort. No: Rales, Wheezing Cardiovascular: Regular Rate, Regular Rhythm, Systolic Murmur (3/6) GI/Abdominal Exam: Normal Bowel Sounds, Soft, Non-Tender (Female) Exam: Deferred Rectal (Female) Exam: Deferred Back Exam: Normal Inspection. No: CVA Tenderness (R), CVA Tenderness (L) Extremities: Normal Inspection, Non-Tender, No Pedal Edema, Normal Capillary Refill Skin: Warm, Dry, Intact Neurological: Cranial Nerves Intact, Strength Equal Bilateral, no peripheral focal deficit Neuro Extensive - Mental Status: Other (Increasing memory difficulties over the last year. No sudden changes.) Psychiatric: Normal Affect, Normal Mood *Q Meaningful Use (DIS) - VTE *Q VTE Criteria *Q: VTE Mechanical Contraindications *Q: At Risk for Falls - Stroke *Q Stroke Criteria *Q: - AMI *Q AMI Criteria *Q:
[2017-05-16 12:40] VITALS: BP 124/57
[2017-05-16] MEDS ORDERED: INSULIN DETEMIR 100 UNIT/ML SUBCUT SCH (21:00)
== END 2017-05-16 14:35 | disposition home or self-care (01) ==
LOC: FB.ED 21:43 → FB.MS 22:43
PROVIDERS: ADMIT Family Medicine; ATTEND Family Medicine
DX: R55 Syncope and collapse (principal); I11.0 Hypertensive heart disease with heart failure; I50.9 Heart failure, unspecified; E11.9 Type 2 diabetes mellitus without complications; F03.90 Unspecified dementia, unspecified severity, without behavioral disturbance, psychotic disturbance, mood disturbance, and anxiety; M79.2 Neuralgia and neuritis, unspecified; I34.0 Nonrheumatic mitral (valve) insufficiency; E86.0 Dehydration; E87.6 Hypokalemia; E87.1 Hypo-osmolality and hyponatremia; I25.10 Atherosclerotic heart disease of native coronary artery without angina pectoris; H54.7 Unspecified visual loss; N28.9 Disorder of kidney and ureter, unspecified; Z79.4 Long term (current) use of insulin; Z79.899 Other long term (current) drug therapy; Z90.710 Acquired absence of both cervix and uterus; Z98.890 Other specified postprocedural states; Z88.0 Allergy status to penicillin
CPT/HCPCS: 36415; 80048; 80053; 81001; 82962; 83036; 83605; 83880; 84443; 84484; 85025; 85610; 93005; 96361; 96372; 96374; 97161; 97166; 99285; A9270; G0378; J1650; J2405; J7120; 99217; 99219

== ENCOUNTER 2019-11-09 20:31 | Inpatient (IN) | payer MEDICARE, OTHER ==
[2019-11-09] MEDS ORDERED: Sodium Chloride 0.9% 10 ML Syringe FLUSH PRN (20:56)
[2019-11-09] MEDS ORDERED: Sodium Chloride 0.9% 1,000 ML IV SCH (21:00)
[2019-11-09] MEDS ORDERED: Insulin Lispro 100 Unit/ML 3 ML KwikPen SUBCUT STA (21:06)
[2019-11-09] MEDS ORDERED: Heparin Sodium 5,000 Units/ML Vial SUBCUT ONE (22:05)
--- NOTE | 2019-11-09 22:13 | EDM.PDOC ---
ED HPI GENERAL MEDICAL PROBLEM - General Chief Complaint: Diabetic Complaint Stated Complaint: Alterd LOC Time Seen by Provider: 11/09/19 20:50 Source of Information: Reports: Patient History Limitations: Reports: No Limitations - History of Present Illness INITIAL COMMENTS - FREE TEXT/NARRATIVE: Patient presented to the ED from the [facility] because of altered LOC, elevated BS and lost of balance. According to her daughter, her mom is more confused than usual. She had some loose stools x 2 days, denies any N/V or abdominal pain. She was also noted to have problem with her gait although there is no recent fall. She also have cough and cold but there is no associated fever or chills or sputum production. Her daughter checked her BS today and it was more than >300 and wants her to be evaluated. History taking is somewhat difficult because of patient's dementia. Most of the information was gathered from her daughter Eboni. - Related Data Allergies Allergy/AdvReac Type Severity Reaction Status Date / Time Penicillins Allergy Unknown unknown Verified 05/14/17 22:03 Home Meds: Home Meds atorvaSTATin [Lipitor] 10 mg PO DAILY 05/14/17 [History] metFORMIN HCl [Metformin ER Osmotic] 1,000 mg PO DAILY 05/15/17 [History] Atenolol/Chlorthalidone [Atenolol-Chlorthalidone 100-25] 0.5 tab PO QID 12/17/17 [History] Insulin Detemir [Levemir Flextouch] 50 units SQ DAILY 12/17/17 [History] Isosorbide Mononitrate [Imdur] 30 mg PO DAILY 12/17/17 [History] Past Medical History HEENT History: Reports: Hard of Hearing, Impaired Vision Cardiovascular History: Reports: CAD, Heart Failure, Hypertension, Other (See Below) Other Cardiovascular History: mitral valve insuff Genitourinary History: Reports: Renal Disease X [employer] History: Reports: Musculoskeletal History: Reports: Back Pain, Chronic, Other (See Below) Other Musculoskeletal History: neuralgia, Neurological History: Reports: Other (See Below) Other Neuro History: syncope, says her memory is getting worse Psychiatric History: Reports: Dementia, Other (See Below) Other Psychiatric History: memory is getting bad Endocrine/Metabolic History: Reports: Diabetes, Type II - Infectious Disease History Infectious Disease History: Reports: Measles - Past Surgical History Female Surgical History: Reports: Hysterectomy Musculoskeletal Surgical History: Reports: Other (See Below) Other Musculoskeletal Surgeries/Procedures:: surgery on R arm for fx Social & Family History - Family History Family Medical History: Unobtainable - Caffeine Use Caffeine Use: Reports: Coffee Other Caffeine Use: 1 cup a day Caffeine Use Comment: 3 cups,day - Living Situation & Occupation Living situation: Reports: with Family (With her daughter) ED ROS GENERAL - Review of Systems Review Of Systems: See Below Constitutional: Reports: Weakness HEENT: Reports: No Symptoms Respiratory: Reports: Cough. Denies: Sputum Cardiovascular: Denies: Chest Pain Endocrine: Reports: No Symptoms GI/Abdominal: Reports: Diarrhea : Reports: No Symptoms Musculoskeletal: Reports: No Symptoms Skin: Reports: No Symptoms Neurological: Reports: Confusion Psychiatric: Reports: No Symptoms Hematologic/Lymphatic: Reports: No Symptoms ED EXAM GENERAL NO PERIP PULSE - Physical Exam Exam: See Below Exam Limited By: No Limitations General Appearance: Alert, No Apparent Distress Ears: Normal External Exam, Normal Canal Nose: Normal Inspection, Normal Mucosa Throat/Mouth: Normal Inspection, Normal Lips Neck: Normal Inspection, Supple Respiratory/Chest: No Respiratory Distress Cardiovascular: Normal Peripheral Pulses, Regular Rate, Rhythm, No Edema, No Gallop, No JVD, No Murmur, No Rub GI/Abdominal: Normal Bowel Sounds, Soft, Non-Tender Back Exam: Normal Inspection, Full Range of Motion Extremities: Normal Inspection, Normal Range of Motion Neurological: No Motor/Sensory Deficits, Confused, Disoriented Skin Exam: Warm Course - Vital Signs Text/Narrative:: Labs/EKG/CXR/Head CT was discussed with her daughter Eboni and verbalized full understanding. Eboni doesn't want her mom to be transferred to [facility] and that no cardiac intervention should be done. She said medical management is all what she want for her mom. Although her pro BNP is elevated I think she is more dry then having CHF exacerbation. She was given 500 ml of NS in the ED and she need gentle hydration Heparin bolus 5,000 U IV Heparin drip as per protocol. Last Recorded V/S: Last Vital Signs Temp 36.9 C 11/09/19 20:47 Pulse 62 11/09/19 23:08 Resp 16 11/09/19 23:08 BP 151/56 H 11/09/19 23:08 Pulse Ox 97 11/09/19 23:08 - Orders/Labs/Meds Orders: Active Orders 24 hr Category Date Time Status EKG Documentation Completion [RC] ASDIRECTED Care 11/09/19 20:57 Active Chest 1V Frontal [CR] Stat Exams 11/09/19 20:56 Taken Head wo Cont [CT] Stat Exams 11/09/19 20:58 Taken Heparin Sodium/0.45% NaCl [Heparin 25,000 Units in 1/2 Med 11/09/19 22:15 Active NS 500 ML] 500 ml IV ASDIRECTED Sodium Chloride 0.9% [Normal Saline] 1,000 ml Med 11/09/19 21:00 Active IV ASDIRECTED Sodium Chloride 0.9% [Saline Flush] Med 11/09/19 20:56 Active 10 ml FLUSH ASDIRECTED PRN Saline Lock Insert [OM.PC] Routine Oth 11/09/19 20:56 Ordered EKG 12 Lead [EK] Routine Ther 11/09/19 20:56 Ordered Medication Orders Acetaminophen (Tylenol Arthritis Pain) 650 mg PO Q4HR PRN PRN Reason: Pain/Fever Atorvastatin Calcium (Lipitor) 10 mg PO DAILY [facility] Docusate Sodium (Colace) 100 mg PO BID PRN PRN Reason: Constipation Enoxaparin Sodium (Lovenox) 60 mg SUBCUT Q24H [facility] Sodium Chloride (Normal Saline) 1,000 mls @ 999 mls/hr IV ASDIRECTED [facility] Last Admin: 11/09/19 21:20 Dose: 999 mls/hr Documented by: MICHELLE Heparin Sodium/Sodium Chloride (Heparin 25,000 Units In 1/2 Ns 500 Ml) 500 mls @ 20 mls/hr IV ASDIRECTED [facility] Last Admin: 11/09/19 22:57 Dose: 20 mls/hr Documented by: DAMIEN Cosigned by: LESA Sodium Chloride (Normal Saline) 1,000 mls @ 75 mls/hr IV ASDIRECTED [facility] Last Admin: 11/09/19 22:30 Dose: 75 mls/hr Documented by: MICHELLE Insulin Glargine (Lantus Solostar) 50 units SUBCUT DAILY [facility] Insulin Human Lispro (Humalog) 0 unit SUBCUT TIDMEALS [facility]; Protocol Isosorbide Mononitrate (Imdur) 30 mg PO DAILY [facility] Metformin HCl (Glucophage Xr) 1,000 mg PO DAILY [facility] Ondansetron HCl (Zofran) 4 mg IVPUSH Q4H PRN PRN Reason: Nausea/Vomiting Sodium Chloride (Saline Flush) 10 ml FLUSH ASDIRECTED PRN PRN Reason: Keep Vein Open Last Admin: 11/09/19 21:15 Dose: 10 ml Documented by: MICHELLE Labs: Laboratory Tests 11/09/19 11/09/19 11/09/19 Range/Units 21:06 21:15 21:15 WBC 12.3 H (4.5-12.0) X10-3/uL RBC 5.23 H (3.23-5.20) x10(6)uL Hgb 14.4 (11.5-15.5) g/dL Hct 44.0 (30.0-51.3) % MCV 84.0 (80-96) fL MCH 27.4 L (27.7-33.6) pg MCHC 32.7 (32.2-35.4) g/dL RDW 13.6 (11.5-15.5) % Plt Count 352 (125-369) X10(3)uL MPV 7.8 (7.4-10.4) fL Neut % (Auto) 59.2 (46-82) % Lymph % (Auto) 30.9 (13-37) % [place] % (Auto) 8.1 (4-12) % Eos % (Auto) 1 (1.0-5.0) % Baso % (Auto) 1 (0-2) % Neut # (Auto) 7.3 (1.6-8.3) # Lymph # (Auto) 3.8 (0.6-5.0) # Lenoir # (Auto) 1.0 (0.0-1.3) # Eos # (Auto) 0.1 (0.0-0.8) # Baso # (Auto) 0.1 (0.0-0.2) # PT (9.0-11.1) sec INR (1.00-1.24) APTT (24.4-33.2) SECONDS Sodium 134 L (135-145) mmol/L Potassium 4.2 (3.5-5.3) mmol/L Chloride 95 L D (100-110) mmol/L Carbon Dioxide 27 (21-32) mmol/L BUN 39 H (7-18) mg/dL Creatinine 1.9 H (0.55-1.02) mg/dL Est Cr Clr Drug Dosing TNP Estimated GFR (MDRD) 25 L (>60) BUN/Creatinine Ratio 20.5 H (9-20) Glucose 362 H D (80-116) mg/dL POC Glucose 336 H (80-116) mg/dL Calcium 8.6 (8.6-10.2) mg/dL Total Bilirubin 0.4 (0.1-1.3) mg/dL AST 30 H D (5-25) IU/L ALT 36 D (12-36) U/L Alkaline Phosphatase 113 H (56-112) IU/L Troponin I (4.0-60.3) pg/mL NT-Pro-B Natriuret Pep (<=450) pg/mL Total Protein 7.6 (6.0-8.0) g/dL Albumin 3.6 (3.2-4.6) g/dL Globulin 4.0 g/dL Albumin/Globulin Ratio 0.9 Urine Color (YELLOW) Urine Appearance (CLEAR) Urine pH (5.0-6.5) Ur Specific [place] (1.010-1.025) Urine Protein (NEGATIVE) mg/dL Urine Glucose (UA) (NORMAL) mg/dL Urine Ketones (NEGATIVE) mg/dL Urine Occult Blood (NEGATIVE) Urine Nitrite (NEGATIVE) Urine Bilirubin (NEGATIVE) Urine Urobilinogen (NEGATIVE) mg/dL Ur Leukocyte Esterase (NEGATIVE) Urine RBC (0-5) Urine WBC (0-5) Ur Squamous Epith Cells (NS,R,O) Urine Bacteria (NS) SARS Virus RNA (PCR) (NEGATIVE) 11/09/19 11/09/19 11/09/19 Range/Units 21:15 21:15 21:15 WBC (4.5-12.0) X10-3/uL RBC (3.23-5.20) x10(6)uL Hgb (11.5-15.5) g/dL Hct (30.0-51.3) % MCV (80-96) fL MCH (27.7-33.6) pg MCHC (32.2-35.4) g/dL RDW (11.5-15.5) % Plt Count (125-369) X10(3)uL MPV (7.4-10.4) fL Neut % (Auto) (46-82) % Lymph % (Auto) (13-37) % Lenoir % (Auto) (4-12) % Eos % (Auto) (1.0-5.0) % Baso % (Auto) (0-2) % Neut # (Auto) (1.6-8.3) # Lymph # (Auto) (0.6-5.0) # Lenoir # (Auto) (0.0-1.3) # Eos # (Auto) (0.0-0.8) # Baso # (Auto) (0.0-0.2) # PT 9.8 (9.0-11.1) sec INR 0.90 L (1.00-1.24) APTT 22.9 L (24.4-33.2) SECONDS Sodium (135-145) mmol/L Potassium (3.5-5.3) mmol/L Chloride (100-110) mmol/L Carbon Dioxide (21-32) mmol/L BUN (7-18) mg/dL Creatinine (0.55-1.02) mg/dL Est Cr Clr Drug Dosing Estimated GFR (MDRD) (>60) BUN/Creatinine Ratio (9-20) Glucose (80-116) mg/dL POC Glucose (80-116) mg/dL Calcium (8.6-10.2) mg/dL Total Bilirubin (0.1-1.3) mg/dL AST (5-25) IU/L ALT (12-36) U/L Alkaline Phosphatase (56-112) IU/L Troponin I 488.1 H* (4.0-60.3) pg/mL NT-Pro-B Natriuret Pep 2009 H* (<=450) pg/mL Total Protein (6.0-8.0) g/dL Albumin (3.2-4.6) g/dL Globulin g/dL Albumin/Globulin Ratio Urine Color (YELLOW) Urine Appearance (CLEAR) Urine pH (5.0-6.5) Ur Specific [place] (1.010-1.025) Urine Protein (NEGATIVE) mg/dL Urine Glucose (UA) (NORMAL) mg/dL Urine Ketones (NEGATIVE) mg/dL Urine Occult Blood (NEGATIVE) Urine Nitrite (NEGATIVE) Urine Bilirubin (NEGATIVE) Urine Urobilinogen (NEGATIVE) mg/dL Ur Leukocyte Esterase (NEGATIVE) Urine RBC (0-5) Urine WBC (0-5) Ur Squamous Epith Cells (NS,R,O) Urine Bacteria (NS) SARS Virus RNA (PCR) (NEGATIVE) 11/09/19 11/09/19 Range/Units 21:20 22:20 WBC (4.5-12.0) X10-3/uL RBC (3.23-5.20) x10(6)uL Hgb (11.5-15.5) g/dL Hct (30.0-51.3) % MCV (80-96) fL MCH (27.7-33.6) pg MCHC (32.2-35.4) g/dL RDW (11.5-15.5) % Plt Count (125-369) X10(3)uL MPV (7.4-10.4) fL Neut % (Auto) (46-82) % Lymph % (Auto) (13-37) % Lenoir % (Auto) (4-12) % Eos % (Auto) (1.0-5.0) % Baso % (Auto) (0-2) % Neut # (Auto) (1.6-8.3) # Lymph # (Auto) (0.6-5.0) # Lenoir # (Auto) (0.0-1.3) # Eos # (Auto) (0.0-0.8) # Baso # (Auto) (0.0-0.2) # PT (9.0-11.1) sec INR (1.00-1.24) APTT (24.4-33.2) SECONDS Sodium (135-145) mmol/L Potassium (3.5-5.3) mmol/L Chloride (100-110) mmol/L Carbon Dioxide (21-32) mmol/L BUN (7-18) mg/dL Creatinine (0.55-1.02) mg/dL Est Cr Clr Drug Dosing Estimated GFR (MDRD) (>60) BUN/Creatinine Ratio (9-20) Glucose (80-116) mg/dL POC Glucose (80-116) mg/dL Calcium (8.6-10.2) mg/dL Total Bilirubin (0.1-1.3) mg/dL AST (5-25) IU/L ALT (12-36) U/L Alkaline Phosphatase (56-112) IU/L Troponin I (4.0-60.3) pg/mL NT-Pro-B Natriuret Pep (<=450) pg/mL Total Protein (6.0-8.0) g/dL Albumin (3.2-4.6) g/dL Globulin g/dL Albumin/Globulin Ratio Urine Color Yellow (YELLOW) Urine Appearance Clear (CLEAR) Urine pH 5.0 (5.0-6.5) Ur Specific [place] 1.015 (1.010-1.025) Urine Protein 30 H (NEGATIVE) mg/dL Urine Glucose (UA) >1000 H (NORMAL) mg/dL Urine Ketones Negative (NEGATIVE) mg/dL Urine Occult Blood Negative (NEGATIVE) Urine Nitrite Negative (NEGATIVE) Urine Bilirubin Negative (NEGATIVE) Urine Urobilinogen Normal (NEGATIVE) mg/dL Ur Leukocyte Esterase Negative (NEGATIVE) Urine RBC 0-5 (0-5) Urine WBC 0-5 (0-5) Ur Squamous Epith Cells Occasional (NS,R,O) Urine Bacteria Rare H (NS) SARS Virus RNA (PCR) Negative (NEGATIVE) Meds: Medications Generic Name Dose Route Start Last Admin Trade Name Freq PRN Reason Stop Dose Admin Acetaminophen 650 mg 11/10/19 00:18 Tylenol Arthritis Pain PO Q4HR PRN Pain/Fever Atorvastatin Calcium 10 mg 11/10/19 09:00 Lipitor PO DAILY MUKESH Docusate Sodium 100 mg 11/09/19 23:31 Colace PO BID PRN Constipation Enoxaparin Sodium 60 mg 11/10/19 00:15 Lovenox SUBCUT Q24H [facility] Sodium Chloride 1,000 mls @ 999 mls/hr 11/09/19 21:00 11/09/19 21:20 Normal Saline IV 999 mls/hr ASDIRECTED MUKESH Administration Heparin Sodium/Sodium Chloride 500 mls @ 20 mls/hr 11/09/19 22:15 11/09/19 22:57 Heparin 25,000 Units In 1/2 Ns 500 Ml IV 20 mls/hr ASDIRECTED MUKESH Administration Sodium Chloride 1,000 mls @ 75 mls/hr 11/10/19 00:30 11/09/19 22:30 Normal Saline IV 75 mls/hr ASDIRECTED MUKESH Administration Insulin Glargine 50 units 11/10/19 09:00 Lantus Solostar SUBCUT DAILY [facility] Insulin Human Lispro 0 unit 11/10/19 08:00 Humalog SUBCUT TIDMEALS [facility] Protocol Isosorbide Mononitrate 30 mg 11/10/19 09:00 Imdur PO DAILY [facility] Metformin HCl 1,000 mg 11/10/19 09:00 Glucophage Xr PO DAILY [facility] Ondansetron HCl 4 mg 11/10/19 00:17 Zofran IVPUSH Q4H PRN Nausea/Vomiting Sodium Chloride 10 ml 11/09/19 20:56 11/09/19 21:15 Saline Flush FLUSH 10 ml ASDIRECTED PRN Administration Keep Vein Open Discontinued Medications Generic Name Dose Route Start Last Admin Trade Name Freq PRN Reason Stop Dose Admin Heparin Sodium (Porcine) 5,000 units 11/09/19 22:55 11/09/19 22:56 Heparin Sodium IVPUSH 11/09/19 22:56 5,000 units ONETIME ONE Administration Insulin Human Lispro 10 unit 11/09/19 21:06 11/09/19 21:15 Humalog SUBCUT 11/09/19 21:07 10 units NOW STA Administration Departure - Departure Time of Disposition: 00:00 Disposition: Admitted As Inpatient 65 Condition: Good Clinical Impression: AMI (acute myocardial infarction), Dehydration, DARI (acute kidney injury), CHF (congestive heart failure) - Discharge Information Sepsis Event Note (ED) - Evaluation Sepsis Screening Result: No Definite Risk - Focused Exam Vital Signs: Vital Signs Temp Pulse Resp BP Pulse Ox 11/09/19 23:08 62 16 151/56 H 97 11/09/19 20:47 36.9 C 65 16 175/56 H 96 - My Orders Last 24 Hours: My Active Orders 11/09/19 20:56 Chest 1V Frontal [CR] Stat Sodium Chloride 0.9% [Saline Flush] 10 ml FLUSH ASDIRECTED PRN Saline Lock Insert [OM.PC] Routine EKG 12 Lead [EK] Routine 11/09/19 20:57 EKG Documentation Completion [RC] ASDIRECTED 11/09/19 20:58 Head wo Cont [CT] Stat 11/09/19 21:00 Sodium Chloride 0.9% [Normal Saline] 1,000 ml IV ASDIRECTED 11/09/19 22:15 Heparin Sodium/0.45% NaCl [Heparin 25,000 Units in 1/2 NS 500 ML] 500 ml IV ASDIRECTED - Assessment/Plan Last 24 Hours: My Active Orders 11/09/19 20:56 Chest 1V Frontal [CR] Stat Sodium Chloride 0.9% [Saline Flush] 10 ml FLUSH ASDIRECTED PRN Saline Lock Insert [OM.PC] Routine EKG 12 Lead [EK] Routine 11/09/19 20:57 EKG Documentation Completion [RC] ASDIRECTED 11/09/19 20:58 Head wo Cont [CT] Stat 11/09/19 21:00 Sodium Chloride 0.9% [Normal Saline] 1,000 ml IV ASDIRECTED 11/09/19 22:15 Heparin Sodium/0.45% NaCl [Heparin 25,000 Units in 1/2 NS 500 ML] 500 ml IV ASDIRECTED
[2019-11-09] MEDS ORDERED: Heparin Sodium/0.45% NaCl 500 ML IV SCH (22:15)
[2019-11-09] MEDS: Sodium Chloride 0.9% 1,000 ML IV SCH (22:30)
[2019-11-09] MEDS ORDERED: Heparin Sodium 5,000 Units/ML Vial IVPUSH ONE (22:55)
[2019-11-09] MEDS ORDERED: Docusate Sodium 100 MG Cap PO PRN (23:31)
[2019-11-10] MEDS ORDERED: Enoxaparin 60 MG/0.6 ML Syringe SUBCUT SCH (00:15)
[2019-11-10] MEDS ORDERED: Ondansetron 4 MG/2 ML SDV IVPUSH PRN (00:17)
[2019-11-10] MEDS: Sodium Chloride 0.9% 1,000 ML IV SCH (03:59)
[2019-11-10] MEDS: Insulin Lispro 100 Unit/ML 3 ML KwikPen SUBCUT SCH ×3 (07:51→18:01)
[2019-11-10] MEDS ORDERED: Isosorbide Mononitrate 30 MG Tab.ER PO SCH (09:00)
[2019-11-10] MEDS ORDERED: metFORMIN 500 MG Tab.ER PO SCH (09:00)
[2019-11-10] MEDS: atorvaSTATin 10 MG Tab PO SCH (10:19)
[2019-11-10] MEDS: Isosorbide Mononitrate 30 MG Tab.ER PO SCH ×2 (10:20→16:54)
[2019-11-10] MEDS: Enoxaparin 60 MG/0.6 ML Syringe SUBCUT SCH (10:21)
[2019-11-10] MEDS: Insulin Glargine,Human Rec. Analog 100 Units/ML 3 ML Pen SUBCUT SCH (10:28)
--- NOTE | 2019-11-11 01:57 | HP ---
ADMISSION DATE: 11/09/2019 DATE SEEN: 11/10/2019 CHIEF COMPLAINT: Balance impairment, increased confusion, hyperglycemia. HISTORY OF PRESENT ILLNESS: Juanis Arango is an 84-year-old female, lives at [facility]. Was seen by her daughter on the day of admission. Increasingly confused, some loose stools, without nausea, vomiting, or abdominal pain. Gait was a bit disturbed without fall, cough, cold, or congestion, and a markedly elevated blood sugar greater than 300. History was difficult in obtaining. Information was from the daughter primarily. On admission, blood sugar was moderately elevated. Daily medications include atenolol-chlorthalidone 100-25 half-tab daily, atorvastatin 10 mg 1 p.o. daily for hyperlipidemia, 50 units subcu Levemir at bedtime, isosorbide 30 mg 1 p.o. daily, metformin 500 mg ER 2 daily. ALLERGIES: Penicillin, reaction unknown. PAST HEALTH: Difficult to interpret. History of hypertension, hyperlipidemia, and diabetes mellitus of questionable control. She has had an abdominal hysterectomy, uncertain if uterus and ovaries. She denies any other operative procedures, hospitalizations, unusual childhood diseases, major injuries, or fractures. SOCIAL HISTORY: Lives independently in apartment. Has been for many years. Three children, all girls. Six grandchildren. Never smoked. No alcohol. No illicit drug use. Farm family by report. REVIEW OF SYSTEMS: Due to memory-related issues, attempts of review of systems were difficult. She notes wears glasses. Has her own teeth. Denies chest pain, though is on Imdur. Denies complicated cough, recent cough. Bowels have been without difficulty, is diapered. No lesions, eruptions, or moles. PHYSICAL EXAMINATION: VITAL SIGNS: 1.6 m, 60.328 kg, 36.7, pulse 56, 158/86, 110 is the mean, 16 is the respiratory rate, O2 saturation 97%. GENERAL: A yound lady, cooperative, conversant, gives a poor history. HEENT: Funduscopic benign. Conjunctivae clear. Bright tympanic membranes. Clear nasal discharge. Mouth and oropharynx clear. Fair dentition. NECK: Benign. Thyroid small. No carotid bruits. CHEST: On auscultation, clear in all lung maldonado. HEART: On auscultation, occasional ectopy. Soft murmur. ABDOMEN: Benign. Lower abdominal vertical hysterectomy scar. No hepatosplenomegaly. GENITOURINARY: Deferred. RECTAL: Deferred. EXTREMITIES: Well perfused. LABORATORY STUDIES: White count 12,300, repeat 10,200; hemoglobin 14.4 and 12.8. INR and ProTime unremarkable. Electrolytes: Sodium 134, 138; potassium 4.2, 3.8; creatinine 1.9 to 1.5; GFR from 25 to 33. Troponin markedly elevated at 488.1. BNP 2008. ASSESSMENT: Acute event of uncertain significance, coronary event a consideration, dehydration a consideration. PLAN: Medications, care and treatment appropriate, observation. No cardiovascular intervention. Symptomatic treatment and well being. /[id number] SANTANA/GINA GRIFFIN
[2019-11-11] MEDS: Insulin Lispro 100 Unit/ML 3 ML KwikPen SUBCUT SCH (07:52)
[2019-11-11] MEDS: Enoxaparin 60 MG/0.6 ML Syringe SUBCUT SCH (08:00)
[2019-11-11] MEDS: atorvaSTATin 10 MG Tab PO SCH (08:01)
[2019-11-11] MEDS: Isosorbide Mononitrate 30 MG Tab.ER PO SCH ×2 (08:01→16:33)
[2019-11-11] MEDS: Insulin Glargine,Human Rec. Analog 100 Units/ML 3 ML Pen SUBCUT SCH (08:02)
--- NOTE | 2019-11-11 11:34 | PN ---
DATE SEEN: 11/11/2019 SUBJECTIVE: Juanis Arango is an 84-year-old female, resides at [facility], was admitted with increasing confusion, balance, some vague sense of reduced well-being. She was found to have an acute infarct with a positive elevated troponin. She has had an uneventful night. Telemetry has been without conflict. No rhythm disturbance. She voiced no particular complaints, is up and about doing well. LABORATORY STUDIES: Of significance, 11/10/2019; normal CBC, moderately elevated glucose 3333, 329, 265, 186. Troponin went from 488 on 11/09/2019 to 1184 on 11/09 and today 7342. She has had no rhythm disturbances of consequence. No other particular complaints on her part. OBJECTIVE: VITAL SIGNS: 36.3, 62, 127/50, 18, and 98%. GENERAL: Appears comfortable. HEENT: Unremarkable. NECK: Supple. Thyroid small. CHEST: Decreased breath sounds. HEART: Grade 2 to 3/6 systolic ejection murmur. ABDOMEN: Benign. No hepatosplenomegaly. EXTREMITIES: Nil edema. ASSESSMENT: Acute infarct. PLAN: Medications, care and treatment appropriate. Echocardiogram be performed. Discontinue telemetry, PT referral. Discharge planning in place. /[id number] SANTANA/GINA
[2019-11-11] MEDS: Insulin Lispro Protamine/Lispro 75-25 100 Units/ML 3 ML KwikPen SUBCUT SCH (18:02)
[2019-11-12] MEDS: Insulin Lispro Protamine/Lispro 75-25 100 Units/ML 3 ML KwikPen SUBCUT SCH ×2 (08:14→18:05)
[2019-11-12] MEDS: Isosorbide Mononitrate 30 MG Tab.ER PO SCH ×2 (08:19→15:34)
[2019-11-12] MEDS: Enoxaparin 60 MG/0.6 ML Syringe SUBCUT SCH (08:19)
[2019-11-12] MEDS: atorvaSTATin 10 MG Tab PO SCH (08:19)
--- NOTE | 2019-11-12 09:31 | PN ---
DATE SEEN: 11/12/2019 SUBJECTIVE: Juanis Arango is a delightful, 84-year-old female seen today for review. Resides at [facility] in [place]. Lives with her daughter. Has been doing well. We made switch from Levemir to Humalog given absence of good clinical response. A1c was markedly elevated. She is on 30 units b.i.d. of Humalog 75/30 daily. Blood sugars improving. 278, 211; this morning at 0700 hours, 101. Echocardiogram revealed reasonably good ejection fraction without valvular disease. Doing well. OBJECTIVE: VITAL SIGNS: 145/63, 36.1 degrees Fahrenheit, 85 is the pulse, respirations 19, 92%. GENERAL: Appears comfortable up sitting, having breakfast. NECK: No JVD. CHEST: On auscultation, clear in all lung maldonado. HEART: Normal S1, S2. No S3, S4. Grade 2 to 3 over 6 systolic ejection murmur. EXTREMITIES: Nonedematous. ASSESSMENT: Acute myocardial infarction. PLAN: All looks well. Ambulate often. Does well today. Plan to discharge tomorrow. /[id number] SANTANA/GINA
[2019-11-12] MEDS: Acetaminophen 650 MG Tab.ER PO PRN (15:36)
[2019-11-13] MEDS: Acetaminophen 650 MG Tab.ER PO PRN (01:14)
[2019-11-13 08:24] VITALS: BP 142/76; PULSE 77
[2019-11-13] MEDS: Insulin Lispro Protamine/Lispro 75-25 100 Units/ML 3 ML KwikPen SUBCUT SCH (08:29)
[2019-11-13] MEDS: Isosorbide Mononitrate 30 MG Tab.ER PO SCH (08:31)
[2019-11-13] MEDS: atorvaSTATin 10 MG Tab PO SCH (08:31)
[2019-11-13] MEDS: Enoxaparin 60 MG/0.6 ML Syringe SUBCUT SCH (08:32)
--- NOTE | 2019-11-13 09:44 | PN ---
DATE SEEN: 11/13/2019 SUBJECTIVE: Juanis Arango is an 84-year-old female admitted with an acute occult PA. Has done well. Age-specific rehab not indicated. She now lives in [facility] with the accompanying care and services, cohabitating with her daughter. Echocardiogram revealed satisfactory ejection fraction of 60% without ventricular wall motion difficulties. Otherwise doing well. Medications on board include: 1. Change of insulin from Levemir to Humalog 75/25. 2. Lipitor. 3. Imdur. 4. Zofran. 5. Saline along with atenolol/chlorthalidone. She is ready for discharge. Nursing notes and clinical data reviewed, updated, and signed. OBJECTIVE: VITAL SIGNS: 36.6, 80, 130/70, 18 is the respiration, 96%. GENERAL: In good spirits. No obvious dyspnea. Mouth and oropharynx clear. NECK: Benign. No JVD. Thyroid small. CHEST: On auscultation, clear in all lung maldonado. HEART: Occasional ectopy. Grade 2 to 3 systolic ejection murmur at aortic root. ABDOMEN: Benign. Minimal edema. ASSESSMENT: Acute myocardial infarction. PLAN: Discharge home. No indication for rehab, support services in place. /[id number] SANTANA/GINA GRIFFIN
[2019-11-13] MEDS ORDERED: Insulin Glargine,Human Rec. Analog 100 Units/ML 3 ML Pen SUBCUT ONE (10:49)
[2019-11-13] MEDS ORDERED: Insulin Lispro 100 Unit/ML 3 ML KwikPen SUBCUT ONE (10:49)
--- NOTE | 2019-11-13 11:59 | DISCH ---
DISCHARGE DATE: 11/13/2019 HISTORY OF PRESENT ILLNESS: Juanis Arango is a delightful 84-year-old female admitted with a sense of reduced well-being, confusion, loose stools, nausea. Clinical information confirmed evidence of an acute myocardial infarction. She was treated empirically. Pain was never an issue. Troponins declined appropriately. Echocardiogram revealed normal ejection fraction and meds on board. Stable and appropriate therapy for post myocardial infarction. Please see discharge exam previously dictated earlier today. ADDENDUM: Thirty-minute visit, care, treatment, and discharge planning. /[id number] SANTANA/GINA GRIFFIN
== END 2019-11-13 10:50 | DRG 281 ==
LOC: FB.ED 20:31 → FB.MS 23:31
PROVIDERS: ADMIT Family Medicine; ATTEND Family Medicine
DX: I21.9 Acute myocardial infarction, unspecified (principal); N17.9 Acute kidney failure, unspecified; Z20.828 Contact with and (suspected) exposure to other viral communicable diseases; I11.0 Hypertensive heart disease with heart failure; H54.7 Unspecified visual loss; H91.90 Unspecified hearing loss, unspecified ear; I50.9 Heart failure, unspecified; I13.0 Hypertensive heart and chronic kidney disease with heart failure and stage 1 through stage 4 chronic kidney disease, or unspecified chronic kidney disease; N18.9 Chronic kidney disease, unspecified; I34.0 Nonrheumatic mitral (valve) insufficiency; F03.90 Unspecified dementia, unspecified severity, without behavioral disturbance, psychotic disturbance, mood disturbance, and anxiety; E11.65 Type 2 diabetes mellitus with hyperglycemia; E11.9 Type 2 diabetes mellitus without complications; E86.0 Dehydration; E78.5 Hyperlipidemia, unspecified; M54.9 Dorsalgia, unspecified; G89.29 Other chronic pain; I25.10 Atherosclerotic heart disease of native coronary artery without angina pectoris; Z88.0 Allergy status to penicillin; Z90.710 Acquired absence of both cervix and uterus; Z79.4 Long term (current) use of insulin; Z79.899 Other long term (current) drug therapy
CPT/HCPCS: 36415; 70450; 71045; 80048; 80053; 81001; 82962; 83036; 83880; 84484; 85025; 85610; 85730; 93005; 93306; 96361; 96365; 97161-GP; 97165-GO; 99285; 99285-25; A9270-GY; J1644; J1650; J1815; J1815-GY; J7030; U0002

== ENCOUNTER 2019-11-14 18:38 | Emergency (ER) | payer MEDICARE, OTHER ==
[2019-11-14] MEDS ORDERED: Sodium Chloride 0.9% 10 ML Syringe FLUSH PRN (18:50)
--- NOTE | 2019-11-14 18:56 | EDM.PDOC ---
ED HPI GENERAL MEDICAL PROBLEM - General Time Seen by Provider: 11/14/19 18:52 Source of Information: Reports: Patient, Old Records History Limitations: Reports: Altered Mental Status - History of Present Illness INITIAL COMMENTS - FREE TEXT/NARRATIVE: Juanis was brought in from [facility] due to a fall. She hit her head,without loss of consciousness. However,she is also found to be lethargic,responding poorly and unable to stay awake. She was discharged yesterday to [facility] due to NSTEMI,CHF. - Related Data Allergies Allergy/AdvReac Type Severity Reaction Status Date / Time Penicillins Allergy Unknown unknown Verified 05/14/17 22:03 Home Meds: Home Meds atorvaSTATin [Lipitor] 10 mg PO DAILY 05/14/17 [History] metFORMIN HCl [Metformin ER Osmotic] 1,000 mg PO DAILY 05/15/17 [History] Atenolol/Chlorthalidone [Atenolol-Chlorthalidone 100-25] 0.5 tab PO DAILY 11/10/19 [History] Acetaminophen [Tylenol Arthritis Pain] 650 mg PO Q4H PRN tab.er 11/13/19 [Rx] Insulin Lispro Prot/Lispro [HumaLOG Mix 75-25] 30 unit SUBCUT BIDMEALS #3 pen 11/13/19 [Rx] Isosorbide Mononitrate [Imdur] 30 mg PO BIDNITRATES #60 tab.er 11/13/19 [Rx] Past Medical History HEENT History: Reports: Hard of Hearing, Impaired Vision Cardiovascular History: Reports: CAD, Heart Failure, Hypertension, Other (See Below) Other Cardiovascular History: mitral valve insuff Genitourinary History: Reports: Renal Disease [employer] History: Reports: Musculoskeletal History: Reports: Back Pain, Chronic, Other (See Below) Other Musculoskeletal History: neuralgia, Neurological History: Reports: Other (See Below) Other Neuro History: syncope, says her memory is getting worse Psychiatric History: Reports: Dementia, Other (See Below) Other Psychiatric History: memory is getting bad Endocrine/Metabolic History: Reports: Diabetes, Type II - Infectious Disease History Infectious Disease History: Reports: Measles - Past Surgical History Female Surgical History: Reports: Hysterectomy Musculoskeletal Surgical History: Reports: Other (See Below) Other Musculoskeletal Surgeries/Procedures:: surgery on R arm for fx Social & Family History - Family History Family Medical History: Unobtainable - Caffeine Use Caffeine Use: Reports: Coffee Other Caffeine Use: 1 cup a day Caffeine Use Comment: 3 cups,day - Living Situation & Occupation Living situation: Reports: with Family (With her daughter) Review of Systems - Review of Systems Review Of Systems: Comprehensive ROS is negative, except as noted in HPI. ED EXAM, GENERAL - Physical Exam Exam: See Below Exam Limited By: Altered Mental Status General Appearance: Lethargic Ears: Normal External Exam Nose: Normal Inspection Head: Atraumatic, Normocephalic Neck: Normal Inspection Respiratory/Chest: No Respiratory Distress Cardiovascular: Normal Peripheral Pulses (Female) Exam: Deferred Rectal (Female) Exam: Deferred Back Exam: Normal Inspection Extremities: Normal Inspection Neurological: Alert, Oriented, CN II-XII Intact Psychiatric: Normal Affect, Normal Mood Skin Exam: Warm EKG INTERPRETATION EKG Date: 11/14/19 ST-T: Elevated Comparison: Change From Previous EKG Course - Orders/Labs/Meds Orders: Active Orders 24 hr Category Date Time Status EKG Documentation Completion [RC] ASDIRECTED Care 11/14/19 18:50 Active Cervical Spine wo Cont [CT] Stat Exams 11/14/19 18:50 Taken Head wo Cont [CT] Stat Exams 11/14/19 18:50 Taken Sodium Chloride 0.9% [Saline Flush] Med 11/14/19 18:50 Active 10 ml FLUSH ASDIRECTED PRN Peripheral IV Insertion Adult [OM.PC] Routine Oth 11/14/19 18:50 Ordered EKG 12 Lead [EK] Routine Ther 11/14/19 18:50 Ordered Medication Orders Sodium Chloride (Saline Flush) 10 ml FLUSH ASDIRECTED PRN PRN Reason: Keep Vein Open Last Admin: 11/14/19 19:22 Dose: 10 ml Documented by: DANNA Labs: Laboratory Tests 11/14/19 11/14/19 11/14/19 Range/Units 18:50 18:50 18:50 WBC 12.1 H (4.5-12.0) X10-3/uL RBC 4.48 (3.23-5.20) x10(6)uL Hgb 12.0 (11.5-15.5) g/dL Hct 37.8 (30.0-51.3) % MCV 84.3 (80-96) fL MCH 26.8 L (27.7-33.6) pg MCHC 31.8 L (32.2-35.4) g/dL RDW 13.3 (11.5-15.5) % Plt Count 347 (125-369) X10(3)uL MPV 7.7 (7.4-10.4) fL Neut % (Auto) 53.8 (46-82) % Lymph % (Auto) 31.7 (13-37) % [place] % (Auto) 12.2 H (4-12) % Eos % (Auto) 2 (1.0-5.0) % Baso % (Auto) 1 (0-2) % Neut # (Auto) 6.5 (1.6-8.3) # Lymph # (Auto) 3.8 (0.6-5.0) # [place] # (Auto) 1.5 H (0.0-1.3) # Eos # (Auto) 0.2 (0.0-0.8) # Baso # (Auto) 0.1 (0.0-0.2) # Sodium 134 L (135-145) mmol/L Potassium 3.7 (3.5-5.3) mmol/L Chloride 98 L D (100-110) mmol/L Carbon Dioxide 26 (21-32) mmol/L BUN 35 H (7-18) mg/dL Creatinine 1.6 H (0.55-1.02) mg/dL Est Cr Clr Drug Dosing TNP Estimated GFR (MDRD) 31 L (>60) BUN/Creatinine Ratio 21.9 H (9-20) Glucose 216 H (80-116) mg/dL Calcium 8.7 (8.6-10.2) mg/dL Troponin I 2231.8 H* (4.0-60.3) pg/mL Meds: Medications Generic Name Dose Route Start Last Admin Trade Name Freq PRN Reason Stop Dose Admin Sodium Chloride 10 ml 11/14/19 18:50 11/14/19 19:22 Saline Flush FLUSH 10 ml ASDIRECTED PRN Administration Keep Vein Open Departure - Departure Time of Disposition: 20:25 Disposition: DC/Tfer to Other 70 Clinical Impression: AMI (acute myocardial infarction) - Discharge Information Referrals: PCP,None [Primary Care Provider] - - Problem List & Annotations (1) Head injury SNOMED Code(s): 37487192 Code(s): S09.90XA - UNSPECIFIED INJURY OF HEAD, INITIAL ENCOUNTER Status: Acute Current Visit: No Qualifiers: Encounter type: initial encounter Qualified Code(s): S09.90XA - Unspecified injury of head, initial encounter (2) Altered mental status SNOMED Code(s): 517625051 Code(s): R41.82 - ALTERED MENTAL STATUS, UNSPECIFIED Status: Acute Current Visit: No Qualifiers: Altered mental status type: disorientation Qualified Code(s): R41.0 - Disorientation, unspecified (3) AMI (acute myocardial infarction) SNOMED Code(s): 88588541 Code(s): I21.9 - ACUTE MYOCARDIAL INFARCTION, UNSPECIFIED Status: Acute Current Visit: No Qualifiers: Myocardial infarction type: ST elevation myocardial infarction - Problem List Review Problem List Initiated/Reviewed/Updated: Yes - My Orders Last 24 Hours: My Active Orders 11/14/19 18:50 EKG Documentation Completion [RC] ASDIRECTED Cervical Spine wo Cont [CT] Stat Head wo Cont [CT] Stat Sodium Chloride 0.9% [Saline Flush] 10 ml FLUSH ASDIRECTED PRN Peripheral IV Insertion Adult [OM.PC] Routine EKG 12 Lead [EK] Routine - Assessment/Plan Last 24 Hours: My Active Orders 11/14/19 18:50 EKG Documentation Completion [RC] ASDIRECTED Cervical Spine wo Cont [CT] Stat Head wo Cont [CT] Stat Sodium Chloride 0.9% [Saline Flush] 10 ml FLUSH ASDIRECTED PRN Peripheral IV Insertion Adult [OM.PC] Routine EKG 12 Lead [EK] Routine Plan: I reviewed CT head and Neck,negative to my interpretation.I called [facility] and will transfer to Cardiology.
[2019-11-14] MEDS ORDERED: Aspirin 81 MG Tab.Chew PO ONE (20:27)
[2019-11-14] MEDS ORDERED: Ticagrelor 90 MG Tab PO ONE (20:27)
[2019-11-14 23:32] VITALS: BP 135/68; PULSE 57
== END 2019-11-14 20:52 | disposition other institution (70) ==
LOC: FB.ED 18:38
DX: I21.9 Acute myocardial infarction, unspecified (principal); I25.10 Atherosclerotic heart disease of native coronary artery without angina pectoris; I11.0 Hypertensive heart disease with heart failure; I50.9 Heart failure, unspecified; F03.90 Unspecified dementia, unspecified severity, without behavioral disturbance, psychotic disturbance, mood disturbance, and anxiety; E11.9 Type 2 diabetes mellitus without complications; Z88.0 Allergy status to penicillin; Z79.4 Long term (current) use of insulin; Z79.899 Other long term (current) drug therapy
CPT/HCPCS: 36415; 70450; 72125; 80048; 84484; 85025; 93005; 93010; 99284; 99285-25; A9270-GY